=== PATIENT | female | born 1980 | race Caucasian/White ===

== ENCOUNTER 2022-06-03 12:11 | Outpatient (CLI) | payer BC, SELFPAY ==
[2022-06-03 13:21] LABS: Clue Cells >20% Clue Cells Seen (None Seen); Trichomonas No Trichomonas Seen (None Seen); Yeast No Yeast Seen (None Seen)
[2022-06-03 17:45] LABS: Hepatitis B Surface Antigen* Negative (Negative)
[2022-06-03 17:55] LABS: HIV 1/2/P24 Combo Screen* Negative (Negative)
[2022-06-03 18:03] LABS: Hepatitis C Virus Antibody* Negative (Negative)
[2022-06-03 18:42] LABS: Chlamydia DNA Amplified* NOT DETECTED (No Detected); GC DNA Amplified* NOT DETECTED (No Detected)
[2022-06-06 01:39] LABS: Rapid Plasma Reagin (RPR) Non Reactive (Non Reactive)
[2022-06-06 05:44] LABS: HSV 1 Glycoprotein G Ab, IgG 5.91 IV (<=0.89)
[2022-06-06 08:13] LABS: Follicle Stimulating Hormone 15.9 IU/L
[2022-06-07 02:24] LABS: HSV 1 and/or 2 IgM by ELISA 0.33 IV (<=0.89); HSV Type 1/2 Combined Ab, IgG >22.40 IV
== END 2022-06-03 12:12 | disposition home or self-care (01) ==
PROVIDERS: Visit Provider Obstetrics & Gynecology
DX: Z11.3 Encounter for screening for infections with a predominantly sexual mode of transmission (principal); R23.2 Flushing; Z12.4 Encounter for screening for malignant neoplasm of cervix
CPT/HCPCS: 83001; 84443; 86592; 86694; 86695; 86696; 86703; 86803; 87210; 87340; 87491; 87591; 87624; 88175

== ENCOUNTER 2022-07-29 11:37 | Outpatient (CLI) | payer BC, SELFPAY | END 2022-07-29 11:38 | disposition home or self-care (01) | LOC: NFLDREF 11:39 | PROVIDERS: Visit Provider Obstetrics & Gynecology | DX: N89.8 Other specified noninflammatory disorders of vagina (principal); R10.2 Pelvic and perineal pain | CPT/HCPCS: 87086; 87186 ==

== ENCOUNTER 2022-10-03 17:15 | Outpatient (CLI) | payer BC, SELFPAY | END 2022-10-03 17:16 | disposition home or self-care (01) | LOC: AMB 10-04 10:53 | PROVIDERS: Visit Provider Emergency Medicine | DX: Z02.89 Encounter for other administrative examinations (principal) ==

== ENCOUNTER 2022-10-14 08:52 | Outpatient (CLI) | payer BC, SELFPAY | END 2022-10-14 08:53 | disposition home or self-care (01) | LOC: NFLDREF 09:59 | PROVIDERS: Visit Provider Physician Assistant | DX: N39.0 Urinary tract infection, site not specified (principal) | CPT/HCPCS: 87086; 87186 ==

== ENCOUNTER 2022-10-17 14:16 | Outpatient (CLI) | payer BC, SELFPAY | END 2022-10-17 14:17 | disposition home or self-care (01) | PROVIDERS: Visit Provider Internal Medicine | DX: R53.83 Other fatigue (principal); R53.1 Weakness; R05.9 Cough, unspecified | CPT/HCPCS: 80053; 87086 ==

== ENCOUNTER 2023-04-24 15:39 | Outpatient (REF) | payer MEDICAID, SELFPAY ==
[2023-04-24 16:00] LABS: Basophils Absolute Auto 0.07 K/uL (0.00-0.30); Basophils Percent Auto 0.9 % (0.0-3.0); Eosinophils Absolute Auto 0.06 K/uL (0.00-0.50); Eosinophils Percent Auto 0.8 % (0.0-7.0); Hematocrit 31.1 % (33.0-51.0); Hemoglobin* 9.8 gm/dL (12.0-16.0); Immature Granulocytes Abs Auto 0.03 K/uL (0.00-0.30); Immature Granulocytes Pct Auto 0.4 %; Lymphocytes Absolute Auto 2.93 K/uL (0.90-2.90); Mean Corpuscular HGB Conc 32 gm/dL (32-36); Mean Corpuscular Hemoglobin 31 pg (26-34); Mean Corpuscular Volume 98 fL (80-100); Monocytes Percent Auto 6.9 % (0.0-11.0); Neutrophils Absolute Auto 4.28 K/uL (1.7-7.0); Platelet Count* 604 K/uL (140-440); RDW Coefficient of Variation % 19.1 % (11.5-15.5); Red Blood Count 3.17 m/uL (4.00-5.20); White Blood Count* 7.92 K/uL (4.50-11.00)
[2023-04-24 16:01] LABS: Slide Review Reflex No
[2023-04-24 16:13] LABS: Aspartate Amino Transferase* 39 U/L (12-35); Estimated Glomerular Filt Rate 73 ml/min
[2023-04-24 16:16] LABS: C Reactive Protein* 2.8 mg/dL (0.5-1.0)
[2023-04-24 16:59] LABS: Erythrocyte SedimentationRate* 78 mm/hr (2-20)
== END 2023-04-24 15:40 | disposition home or self-care (01) ==
LOC: NPINS 15:39
DX: N15.1 Renal and perinephric abscess (principal)
CPT/HCPCS: 82565; 84450; 85025; 85651; 86140

== ENCOUNTER 2023-05-03 14:00 | Outpatient (RCR) | payer MEDICAID, SELFPAY ==
[2023-04-13 11:32] LABS: Basophils Absolute Auto 0.06 K/uL (0.00-0.30); Basophils Percent Auto 0.8 % (0.0-3.0); Eosinophils Absolute Auto 0.16 K/uL (0.00-0.50); Eosinophils Percent Auto 2.2 % (0.0-7.0); Hematocrit 20.9 % (33.0-51.0); Immature Granulocytes Abs Auto 0.04 K/uL (0.00-0.30); Immature Granulocytes Pct Auto 0.6 %; Lymphocytes Absolute Auto 1.48 K/uL (0.90-2.90); Lymphocytes Percent Auto 20.7 % (20-44); Mean Corpuscular HGB Conc 31 gm/dL (32-36); Mean Corpuscular Hemoglobin 32 pg (26-34); Mean Corpuscular Volume 106 fL (80-100); Monocytes Percent Auto 6.7 % (0.0-11.0); Neutrophils Absolute Auto 4.94 K/uL (1.7-7.0); Platelet Count* 475 K/uL (140-440); RDW Coefficient of Variation % 18.6 % (11.5-15.5); Red Blood Count 1.98 m/uL (4.00-5.20); White Blood Count* 7.16 K/uL (4.50-11.00)
[2023-04-13 11:50] LABS: Hemoglobin* 6.4 gm/dL (12.0-16.0); Slide Review Reflex Yes
[2023-04-13 11:56] LABS: Aspartate Amino Transferase* 48 U/L (12-35); Creatinine* 0.8 mg/dL (0.5-1.5); Estimated Glomerular Filt Rate 95 ml/min
[2023-04-13 11:59] LABS: C Reactive Protein* 7.5 mg/dL (0.5-1.0)
--- NOTE | 2023-04-13 12:32 | ONC.NURNOTE ---
Patient's lab values called and faxed to ID with information regarding her swelling of legs, hands, and face. Patient also reports a change in vision, and peeling of bilateral feet. Office will discuss wtih Dr. Lagos and will call patient with plan. Patient is aware that they will be calling and will call them if she does not hear from them by afternoon. She denies bleeding from anywhere.
[2023-04-13 12:42] LABS: Slide Review Acceptable Review (Acceptable)
[2023-05-01 14:35] LABS: Basophils Absolute Auto 0.05 K/uL (0.00-0.30); Basophils Percent Auto 0.5 % (0.0-3.0); Eosinophils Absolute Auto 0.03 K/uL (0.00-0.50); Eosinophils Percent Auto 0.3 % (0.0-7.0); Immature Granulocytes Abs Auto 0.01 K/uL (0.00-0.30); Immature Granulocytes Pct Auto 0.1 %; Lymphocytes Absolute Auto 3.57 K/uL (0.90-2.90); Mean Corpuscular HGB Conc 31 gm/dL (32-36); Mean Corpuscular Hemoglobin 30 pg (26-34); Mean Corpuscular Volume 96 fL (80-100); Monocytes Percent Auto 4.7 % (0.0-11.0); Neutrophils Absolute Auto 5.79 K/uL (1.7-7.0); Neutrophils Percent Auto 58.4 % (42.0-72.0); Platelet Count* 528 K/uL (140-440); Red Blood Count 3.34 m/uL (4.00-5.20); White Blood Count* 9.92 K/uL (4.50-11.00)
[2023-05-01 14:39] LABS: Slide Review Reflex No
[2023-05-01 15:03] LABS: Aspartate Amino Transferase* 36 U/L (12-35); Creatinine* 0.9 mg/dL (0.5-1.5); Estimated Glomerular Filt Rate 83 ml/min
[2023-05-01 15:07] LABS: C Reactive Protein* 1.6 mg/dL (0.5-1.0)
[2023-05-01 15:17] LABS: Erythrocyte SedimentationRate* 53 mm/hr (2-20)
--- NOTE | 2023-05-02 09:11 | ONC.NURNOTE ---
Labs faxed to Dr. Suarez.
--- NOTE | 2023-05-03 14:51 | ONC.NURNOTE ---
Midline PICC removed without difficulty, intact. Pt observed for 30 min after removal.
== END 2023-10-10 23:59 | disposition home or self-care (01) ==
LOC: CCIC 14:00
PROVIDERS: Visit Provider Clinical Nurse Specialist
DX: D69.6 Thrombocytopenia, unspecified (principal)
CPT/HCPCS: 36415; 36589; 82565; 84450; 85025; 85651; 86140; 99211; A4221

== ENCOUNTER 2023-06-09 11:01 | Outpatient (CLI) | payer MEDICAID, SELFPAY | END 2023-06-09 11:02 | disposition home or self-care (01) | LOC: AMB 06-13 16:10 | PROVIDERS: PCP Family Medicine; Visit Provider Family Medicine | DX: R45.851 Suicidal ideations (principal) | CPT/HCPCS: A0425; A0427 ==

== ENCOUNTER 2023-06-09 11:27 | Emergency (ER) | payer SELFPAY ==
[2023-06-09] VITALS (116 sets, daily range): BP systolic 64–101; BP diastolic 40–76; PULSE 58–95; RESP 7–18; TEMP 36.6; O2SAT 89–100; BMI 23.5
--- NOTE | 2023-06-09 11:54 | ED_ITS ---
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 Propoxyphene Screen Negative (Negative) Acetaminophen (10.0-30.0) ug/mL Ur Barbiturates Screen Negative (Negative) U Tricyclic Antidepress Negative (Negative) Ur Phencyclidine Scrn Negative (Negative) Ur Amphetamines Screen Negative (Negative) U Methamphetamines Scrn Negative (Negative) U Benzodiazepines Scrn POSITIVE A (Negative) Urine Cocaine Screen Negative (Negative) U Marijuana (THC) Screen Negative (Negative) Ur Drug Screen Comment See Note Ethyl Alcohol (0.01-0.03) % SARS-CoV-2 (PCR) Negative SARS-CoV-2 (Negative) Lab Acknowledgement Test Added POC Troponin I (0.01-0.04) ng/ml ECG Data Attestation: I personally reviewed and interpreted this ECG as follows: (EKG is generally low amplitude normal sinus rhythm rate of 71 reviewed by me) Critical Care Time Critical Care Time Critical Care Time: Yes Attestation: The patient required my highest level preparedness to intervene emergently and I personally spent this critical care time directly and personally managing the patient. This critical care time included: Obtaining a history; Examining the patient; Pulse oximetry; Ordering and reviewing of studies; Arranging urgent treatment with development of a management plan; Evaluation of patients response to treatment; Frequent reassessment discussions with other providers. This critical care time was performed to assess and manage the high probability of imminent life-threatening deterioration that could result in multiorgan failure. It was exclusive of separate billable procedures and treating other patients and teaching time. Total Critical Care Time in Minutes: 80 Discharge Plan Discharge Clinical Impression: Alcohol intoxication, Altered mental status, Hypotension Patient Disposition: [facility] Discharge Location: [facility] Condition: Guarded
[2023-06-09] MEDS: 0.9 % SODIUM CHLORIDE 1000 ml 1,000 ML IV ×3 (12:02→15:41)
[2023-06-09 12:21] LABS: Basophils Absolute Auto 0.05 K/uL (0.00-0.30); Basophils Percent Auto 0.7 % (0.0-3.0); Eosinophils Absolute Auto 0.05 K/uL (0.00-0.50); Eosinophils Percent Auto 0.7 % (0.0-7.0); Hematocrit 40.3 % (33.0-51.0); Hemoglobin* 12.7 gm/dL (12.0-16.0); Immature Granulocytes Abs Auto 0.01 K/uL (0.00-0.30); Immature Granulocytes Pct Auto 0.1 %; Mean Corpuscular HGB Conc 32 gm/dL (32-36); Mean Corpuscular Hemoglobin 29 pg (26-34); Mean Corpuscular Volume 91 fL (80-100); Monocytes Percent Auto 5.5 % (0.0-11.0); Platelet Count* 238 K/uL (140-440); Red Blood Count 4.43 m/uL (4.00-5.20); White Blood Count* 6.89 K/uL (4.50-11.00)
[2023-06-09 12:22] LABS: HCO3 VBG 27 mmol/L (21-28); PCO2 VBG 47 mmHG (40-50); PO2 VBG 83.1 mmHG (25-47); pH VBG 7.372 (7.32-7.43)
[2023-06-09 12:23] LABS: Lactate* 2.2 mmol/L (0.5-1.9)
[2023-06-09 12:24] LABS: Slide Review Reflex No
[2023-06-09 12:41] LABS: Albumin* 4.3 g/dL (3.3-5.0); Chloride* 107 mmol/L (96-114)
[2023-06-09 12:42] LABS: Potassium* 3.6 mmol/L (3.6-5.1); Sodium* 143 mmol/L (135-149)
[2023-06-09 12:44] LABS: Est. Creatinine Clearance* 72.72; Estimated Glomerular Filt Rate 73 ml/min
[2023-06-09 12:45] LABS: Alanine Aminotransferase* 12 U/L (4-35); Alkaline Phosphatase* 59 U/L (40-150); Anion Gap 12 mEq/L (7-15); Aspartate Amino Transferase* 29 U/L (12-35); Bilirubin Total* 0.3 mg/dL (0.1-1.5); Blood Urea Nitrogen* 13 mg/dL (5-24); Calcium* 8.7 mg/dL (8.4-10.6); Carbon Dioxide* 24 mmol/L (20-32); Glucose* 85 mg/dL (60-115); Total Protein* 7.6 g/dL (6.0-8.3)
[2023-06-09 12:46] LABS: Magnesium* 2.7 mg/dL (1.5-2.6)
[2023-06-09 12:48] LABS: Acetaminophen* < 10.0 ug/mL (10.0-30.0); C Reactive Protein* < 0.5 mg/dL (0.5-1.0); Salicylate* < 1.0 mg/dL (1.0-10)
[2023-06-09 12:58] LABS: NT Pro B Type NatriureticPept* 52 pg/mL; Troponin I* < 0.01 ng/mL (0.01-0.04)
[2023-06-09 13:19] LABS: Ur HCG Qualitative* Negative (Negative)
--- NOTE | 2023-06-09 13:21 | ED.NURSE ---
notified of low blood pressure. No orders. No new interventions.
[2023-06-09 13:24] LABS: Amphetamine Screen Urine Negative (Negative); Barbiturate Screen Urine Negative (Negative); Benzodiazepines Screen Urine POSITIVE (Negative); Cannabinoid Screen Urine Negative (Negative); Cocaine Screen Urine Negative (Negative); Methadone Screen Urine Negative (Negative); Methamphetamines Screen Urine Negative (Negative); Opiate Screen Urine Negative (Negative); Oxycodone Screen Urine Negative (Negative); Phencyclidine Screen Urine Negative (Negative); Tricyclic Antidepressant Urine Negative (Negative)
[2023-06-09 13:28] LABS: Thyroid Stimulating Hormone* 0.881 uIU/mL (0.270-4.20)
--- NOTE | 2023-06-09 13:30 | ED.NURSE ---
Fingernail Former took call from someone claiming to be [facility] [employer]. Requesting information on patient such as status, ETOH level and requesting an interview with patient. Fingernail Former stated we are not authorized to provide information. Caller became upset stating they would be coming to the hospital with law enforcement.
[2023-06-09 13:31] LABS: Ethanol* 0.28 % (0.01-0.03)
--- NOTE | 2023-06-09 14:00 | ED.NURSE ---
Pt blood pressure low. Minimally responsive to Stimuli GCS 2. MD notified. No new orders. Continue with current plan.
--- NOTE | 2023-06-09 14:28 | ED.NURSE ---
Pharmaceutical Operator contacted poison control. Per poison control, avoid giving benzo reversal as she is on Amitriptyline and that can cause seizures as well as the quick reversal of the Ativan. Pt is negative for amphetamines which makes taking Adderall unlikely. Staff should watch for tachycardia, EKG: QT prolongation and seizures. Peak time for Ativan and Adderall is less than 4 hours from time of ingestion.
--- NOTE | 2023-06-09 14:45 | ED.NURSE ---
Pt to CT scan. Continues to be responsive only to painful stimuli
--- NOTE | 2023-06-09 14:52 | CRLHL7_ITS ---
For Patients: As a result of the Century Cures Act, medical imaging exams and procedure reports are released immediately into your electronic medical record. You may view this report before your referring provider. If you have questions, please contact your health care provider. INDICATION: Altered mental status. Hypotension. TECHNIQUE: CT head without contrast. COMPARISON: March 25, 2023. FINDINGS: CSF spaces: Within normal limits for age. Brain parenchyma and extra-axial spaces: The randall-white differentiation is normal. No sign of mass, hemorrhage, or midline shift. No extra-axial fluid collection. Skull base and calvarium: The visualized paranasal sinuses and mastoid air cells demonstrate no acute or significant findings. The visualized orbits are grossly unremarkable. No skull fractures. IMPRESSION: Unremarkable noncontrast head CT. Please note that all CT scans at this facility use dose modulation, iterative reconstruction, and/or weight-based dosing when appropriate to reduce radiation dose to as low as reasonably achievable. Dictated by Quentin Harris MD @ 06/09/2023 3:50:58 PM (Electronically Signed)
--- NOTE | 2023-06-09 15:50 | CRLHL7_ITS ---
For Patients: As a result of the Cures Act, medical imaging exams and procedure reports are released immediately into your electronic medical record. You may view this report before your referring provider. If you have questions, please contact your health care provider. INDICATION: Hypoxia. TECHNIQUE: Chest, 2 views. COMPARISON: October 17, 2022. FINDINGS: Cardiovascular and mediastinum: Heart size and vasculature are normal in caliber and appearance. Lungs and pleural spaces: Lungs are clear. No sign of infiltrate or mass. No sign of pleural effusion. No pneumothorax. Bones and soft tissues: No significant findings. IMPRESSION: No acute or significant findings. Dictated by Peng Martinez MD @ 06/09/2023 5:11:06 PM (Electronically Signed)
--- NOTE | 2023-06-09 15:55 | ED.NURSE ---
Second IV placed.
--- NOTE | 2023-06-09 16:30 | ED.NURSE ---
MD at bedside. Doing bedside ultrasound.
[2023-06-09 16:47] LABS: SARS PCR* Negative SARS-CoV-2 (Negative)
[2023-06-09 16:58] LABS: Appearance Urine Clear (Clear); Bilirubin Urine Negative (Negative); Blood Urine Negative (Negative); Color Urine Yellow (Yellow); Glucose Urine Negative (Negative); Ketones Urine Negative (Negative); Leukocyte Esterase Urine Negative (Negative); Nitrite Urine Negative (Negative); Protein Urine Negative (Negative); Specific Gravity Urine <= 1.005 (1.000-1.030); Urobilinogen Urine 0.2 (0.2-1.0); pH Urine 6.5 (5.0-8.5)
--- NOTE | 2023-06-09 17:00 | ED.NURSE ---
Pt moving around in bed, eyes closed. Exhaust Tender asked patient where she was and patient responded hospital. Unable to communicate further.
[2023-06-09 17:04] LABS: RBC Urine 0-2 (0-2); Squamous Epithelial Cell Urine Few (None-Few); WBC Urine 0-2 (0-5)
--- NOTE | 2023-06-09 17:23 | ED.NURSE ---
Pt latest blood pressure, 73/49 --- order to start Norepi by Dr. Saleem.
[2023-06-09 17:41] LABS: Potassium* 3.8 mmol/L (3.6-5.1)
[2023-06-09 17:44] LABS: Creatine Kinase* 55 U/L (41-117)
--- NOTE | 2023-06-10 14:21 | ED.NURSE ---
Per Anuj Tristna ed director, chart was accessed and Drs' note (emergency note) was faxed to [facility] Jad Moss. [phone].
== END 2023-06-09 18:23 | disposition short-term general hospital (02) ==
PROVIDERS: Emergency Provider Family Medicine; PCP Family Medicine
DX: F10.129 Alcohol abuse with intoxication, unspecified (principal); R41.82 Altered mental status, unspecified; I95.9 Hypotension, unspecified
CPT/HCPCS: 36415; 51702; 70450; 71045; 80048; 80076; 80143; 80179; 80306; 81001; 81025; 82077; 82550; 82803; 83605; 83735; 83880; 84132; 84443; 84484; 85025; 86140; 87040; 87635; 93005; 96374; 99284; 99291; 99292; J2310; J7030

== ENCOUNTER 2023-06-09 17:54 | Outpatient (CLI) | payer MEDICAID, SELFPAY | END 2023-06-09 17:55 | disposition home or self-care (01) | LOC: AMB 06-22 16:19 | PROVIDERS: PCP Family Medicine; Visit Provider Family Medicine | DX: I95.9 Hypotension, unspecified (principal); F10.929 Alcohol use, unspecified with intoxication, unspecified; R41.82 Altered mental status, unspecified | CPT/HCPCS: A0425; A0434 ==

== ENCOUNTER 2023-07-19 15:17 | Outpatient (CLI) | payer BC, SELFPAY | END 2023-07-19 15:18 | disposition home or self-care (01) | LOC: FRMREF 15:18 | PROVIDERS: PCP Family Medicine; Visit Provider Family Medicine | DX: M31.19 Other thrombotic microangiopathy (principal); F31.77 Bipolar disorder, in partial remission, most recent episode mixed; Z79.899 Other long term (current) drug therapy; Z13.9 Encounter for screening, unspecified; Z13.220 Encounter for screening for lipoid disorders; Z13.228 Encounter for screening for other metabolic disorders; F10.20 Alcohol dependence, uncomplicated | CPT/HCPCS: 80053; 80061; 80074; 80177; 80306; 82607; 82728; 84443; 86376 ==

== ENCOUNTER 2023-08-21 11:55 | Outpatient (CLI) | payer BC, SELFPAY | END 2023-08-21 11:56 | disposition home or self-care (01) | PROVIDERS: PCP Family Medicine; Visit Provider Internal Medicine Addiction Medicine | DX: R50.9 Fever, unspecified (principal); R30.0 Dysuria; M79.10 Myalgia, unspecified site | CPT/HCPCS: 80053; 83690; 84443; 86592; 86703 ==

== ENCOUNTER 2023-11-07 13:28 | Outpatient (CLI) | payer BC, SELFPAY | END 2023-11-07 13:29 | disposition home or self-care (01) | LOC: NFLDREF 11-08 07:54 | PROVIDERS: PCP Family Medicine; Referring Provider Family Medicine; Visit Provider Physician Assistant | DX: N39.0 Urinary tract infection, site not specified (principal) | CPT/HCPCS: 87086; 87186 ==

== ENCOUNTER 2023-11-19 10:08 | Emergency (ER) | payer BC, SELFPAY ==
[2023-11-19 10:15] VITALS: BP 113/68; PULSE 107; RESP 18; TEMP 37; O2SAT 99; BMI 22.1
--- NOTE | 2023-11-19 10:26 | XR_ITS ---
Patient: JAYSON OLEA Facility:?[facility] Patient ID:?[id number] Site Patient ID:?[id number]. Site :?[id number] Study:?XRay-Hip Right -11/19/2023 10:40:56 AM Ordering Physician:?DR. ELLER Final Report: INDICATION: Fall roller-skating TECHNIQUE: AP pelvis and right hip views. FINDINGS: Normal alignment. No fractures are seen. IMPRESSION: Negative . Dictated by Madalyn Smith MD @ 11/19/2023 11:07:22 AM Signed by:?Madalyn Smith MD @11/19/2023 11:07:22 AM (Electronic Signature)
--- OUTSIDE RECORDS SUMMARY | 2023-11-19 10:32 | XMS_ITS | Clinical Summary ---
Author Name Unknown Organization [employer] [facility] Address [place], [place] [address] Care Team Providers Care School Standards Coach Name Role Phone Katerina Trujillo MD Primary Care Provider [phone] Allergies Active Allergy Reactions Criticality Noted Date Comments Adhesive Tape-Silicones Contact Dermatitis 09/2022 Bupropion Hcl Seizures High 07/25/2012 Cefuroxime Throat Swelling/Closing High 11/04/2006 No problems with amoxicillin. Celecoxib Nausea And Vomiting 11/10/2014 Cephalosporins Edema High 11/14/2018 Throat swelling Dust Mites Hives 11/25/2013 Morphine Vomiting Low 05/14/2015 Naloxone Other - Describe In Comment Field 01/08/2019 Blisters in her mouth Naproxen GI Upset 11/04/2006 Intol. Bupropion Seizures 01/03/2007 Medications Medication Sig Dispensed Refills Start Date End Date Status hydrOXYzine HCl (ATARAX) 25 mg tablet Take 25 mg by mouth every 4 hours if needed for Anxiety (sleep). 0 11/28/2017 Active dextroamphetamine-a mphetamine (Adderall XR) 30 mg Extended-Release capsule Take 30 mg by mouth once daily if needed (concentration; school). Not currently taking Active pantoprazole (PROTONIX) 40 mg delayed-release tabletIndications:S epsis due to Gram negative bacteria (HC),Gastroesophage al reflux disease, unspecified whether esophagitis present Take 1 Tablet (40 mg) by mouth two times daily before meals. 60 Tablet 04/05/2023 Active Gavilax 17 gram/dose powder Mix 0.5-1 scoops in liquid then take by mouth once daily if needed for Constipation. 10/06/2022 Active nicotine 21 mg/24 hr (NICODERM; HABITROL) 21 mg/24 hr patch Apply 21 mg on dry, clean, hairless skin once daily if needed for Nicotine Craving. Active nicotine (NICORETTE) 2 mg gum Chew 2 mg every 2 hours if needed for Nicotine Craving. Active sennosides (SENNA) 8.6 mg tabletIndications:T herapeutic opioid induced constipation Take 1-2 Tablets (8.6-17.2 mg) by mouth 2 times daily if needed for Constipation. 30 Tablet 04/20/2023 Active clotrimazole (LOTRIMIN) 1 % creamIndications:Ti siobhan pedis of both feet Apply topically to affected area(s) two times daily. To both feet5 113 g 1 05/03/2023 Active buprenorphine HCL (SUBUTEX) 8 mg tabletIndications:P ain medication agreement Place 1.5 Tablets (12 mg) under the tongue every morning. 30 Tablet 06/11/2023 Active methocarbamoL (ROBAXIN) 500 mg tabletIndications:R enal abscess,Acute left flank pain Take 1-2 Tablets (500-1,000 mg) by mouth every 6 hours if needed for Muscle Spasm PO 1st choice (flank pain). 36 Tablet 2 10/30/2023 Active metroNIDAZOLE (FLAGYL) 500 mg tabletIndications:B acterial vaginosis Take 1 Tablet (500 mg) by mouth two times daily for 7 days. 14 Tablet 11/15/2023 4 Active methocarbamoL (ROBAXIN) 500 mg tabletIndications:R enal abscess,Acute left flank pain Take 1-2 Tablets (500-1,000 mg) by mouth every 6 hours if needed for Muscle Spasm(flank pain). 30 Tablet 04/20/2023 4 Discontinued (Reorder (E-cancel not sent)) amitriptyline (ELAVIL) 25 mg tabletIndications:P TSD (post-traumatic stress disorder) Take 1 Tablet (25 mg) by mouth at bedtime. 30 Tablet 06/12/2023 4 Discontinued (*Med complete/Reg imen complete/Lev el of care change) cyclobenzaprine (FLEXERIL) 10 mg tabletIndications:U pper back pain Take 1 Tablet (10 mg) by mouth 3 times daily if needed for Muscle Spasm. 12 Tablet 09/22/2023 4 Discontinued (*Med complete/Reg imen complete/Lev el of care change) predniSONE (DELTASONE) 10 mg tabletIndications:C ervical radiculopathy Take 2 Tablets (20 mg) by mouth two times daily with meals for 3 days, THEN 1 Tablet (10 mg) three times daily with meals for 3 days, THEN 2 Tablets (20 mg) once daily with a meal for 3 days, THEN 1 Tablet (10 mg) once daily with a meal for 3 days. 30 Tablet 10/30/2023 4 fluconazole (DIFLUCAN) 150 mg tabletIndications:A ntibiotic-induced yeast infection Take 1 Tablet (150 mg) by mouth one time for 1 dose. Take for yeast infection following antibiotic treatment. 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 10/16/2014 Tobacco abuse disorder 06/01/2014 Adenomyosis 10/19/2013 Pelvic pain in female 10/19/2013 ACP (advance care planning) 08/22/2011 Overview: Patient has identified Health Care Agent(s): Yes Add Health Care Agents: No Patient has Advance Care Plan Documents (Health Care Directive, POLST): No, patient is not interested at this time. . Patient has identified Specific Treatment Preferences: No Specific limits to treatment preferences NOT identified: ASSUME FULL TREATMENT. Bre Moore RN .................... 08/22/2011 2:53 PM\ Low grade squamous intraepit helial lesion (LGSIL) on cervical Pap smear 12/15/2009 Overview: 11/2009 LSIL 12/2009 [place]: Squamous cellular changes suspicious but not diagnostic for HPV 07/2010 NIL 06/2011 NIL 07/2012 NIL 10/2013 NIL 01/2017 ASCUS/HPV negative 09/2017 ASCUS/HPV negative; Plan: colposcopy Scapulothoracic Bursitis 02/05/2009 DDD, upper thoracic 02/05/2009 Compression Fracture of T12 02/05/2009 Lumbar Facet Syndrome 02/05/2009 Headache(784.0) 01/12/2009 PTSD (post-traumatic stress disorder) 06/25/2008 Migraine, unspecified, witho ut mention of intractable migraine without mention of status migrainosus Chronic pain due to trauma Other bipolar disorders Resolved Problems Problem Noted Date Diagnosed Date Resolved Date Medical Home 08/22/2011 01/27/2012 Supervision of other normal 12/15/2009 01/25/2013 Unspecified complication of , unspecified as to episode of care 09/10/20072008 Unspecified inflammatory dis ease of female pelvic organs and tissues 06/12/2007 01/12/2009 Overview: ACTINOMYCOSIS Degeneration of thoracic or thoracolumbar intervertebral disc 05/09/2007 02/05/2009 Periapical abscess without sinus 01/12/2009 Encounters Date Type Department Care Team Description 11/15/2023 Telephone [facility] [address] [place] [address] Gayathri Ledezma, PharmD Results (BV Positive) 11/13/2023 4:24 PM CDT - 11/13/2023 8:58 PM CDT Emergency [facility] [address] [place] [address] Joann Ogden NP Hematuria, unspecified type (Primary Dx); Abnormal uterine bleeding Discharge Disposition: Home Self Care 11/13/2023 Travel 11/06/2023 10:10 AM CDT - 11/06/2023 11:59 PM CDT Hospital Encounter [facility] [address] [place] [address] Ren Starks MD Arthropathy of thoracic facet joint; Peripheral polyneuropathy; Scapulothoracic Bursitis; DDD (degenerative disc disease), cervical; Cervical radiculopathy 11/06/2023 Telephone [facility] [address] [place] [address] Ren Starks MD Results 11/06/2023 Travel 10/30/2023 7:40 AM CDT Office Visit [facility] [address] [place] [address] Ren Starks MD Musculoskeletal Problem (Consult neck to thoracic back pain bilateral arm shoulder pain) 10/30/2023 Travel 09/22/2023 2:53 PM GRANULATOR MACHINE OPERATOR - 09/22/2023 4:53 PM GRANULATOR MACHINE OPERATOR Emergency [facility] [address] [place] [address] Gavino Contreras MD Upper back pain (Primary Dx) Discharge Disposition: Home Self Care 09/22/2023 Travel 09/22/2023 Telephone [facility] [address] [place] [address] Ren Starks MD Questions from Last 3 Months Immunizations Name Administration Dates Next Due Influenza, IIV3 (Age >=3 years) 07/19/20 12,04/29/2010,05/28/2008, 7,07/22/2005,06/14/2004 07/19/2013 Influenza, IIV4 10/14/2016 Tdap 10/14/2016,02/07/2011 Family History Medical History Relation Name Comments Allergies Child Alcohol/Drug Father Arthritis Father Cancer Father Heart Disease Father Hx. by pass [place]. Other Father Migraine Psychiatric illness Father Other Maternal Grandmother Migrain e Psychiatric illness Maternal Grandmother Alcohol/Drug Mother Asthma Mother Other Mother Migraine Psychiatric illness Mother Alcohol/Drug Sister 2 Alcohol/Drug Sister 3 Relation Name Status Comments Brother Alive x2 half Child Daughter Alive Father Alive Maternal Grandfather Maternal Grandmother Alive Mother Alive Paternal Grandfather Paternal Grandmother Sister 1 Alive x2 half Sister 2 Sister 3 Son 1 Alive Son 2 Alive Son 3 Alive Son 4 Alive Social History Tobacco Use Types Packs/Day Years Used Date Smoking Tobacco: Every Day Cigarettes 0.5 13 Smokeless Tobacco: Never Tobacco Cessation:Ready to Q uit: Not Asked; Counseling Given: Not Answered Alcohol Use Standard Drinks/Week Comments No 0 (1 standard drink = 0.6 oz pur e alcohol) Social Connections Answer Date Recorded Frequency of Communication with Friends and Fami ly 0 06/09/2023 Financial Resource Strain Answer Date R ecorded Difficulty of Paying Living Expenses 3 06/09/2023 Difficulty of Paying Living Expenses Not on file 06/09/2023 Food Insecurity Answer Date Recorded Worried About Running Out of Food in the Last Ye ar 1 06/09/2023 Transportation Needs Answer Date Record ed Lack of Transportation (Medical) 1 06/09/2023 Housing Stability Answer Date Recorded Unable to Pay for Housing in the Last Year 1 06/09/2023 Sex and Gender Information Value Date Recorded Sex Assigned at Not on file Gender Identity Not on file Sexual Orientation Not on file Obstetrics History Para Term AB IAB SAB Ectopic Multiple Livin g Live Births 7 5 4 4 5 Date Outcome GA Total Labor Labor/2nd/3rd Weight Sex Delivery Anes PTL Nan A1 A5 Name Cl in 11/30 Term 40w 0d 3.63 kg (8 lb) M [facility] Y[facility] [place] 02/01 Term 40w 0d 3.69 kg (8 lb 2 oz) F Vag [place] 12/24 Term 40w 0d 3.52 kg (7 lb 12 oz) M Vag Yolanda ng 7 8 [facility] Delivery Location:[place] 02/11 Para M Vag Yolanda ng [facility] Delivery Location:[place] 06/27 Term 38w 0d 3.4 kg (7 lb 8 oz) M Vag Yolanda ng deter t Delivery Location:[facility] Last Filed Vital Signs Vital Sign Reading Time Taken Comments Blood Pressure 110/74 11/13/2023 7:42 PM CDT Pulse 72 11/13/2023 7:42 PM CDT Temperature 36.9 ??C (98.4 ??F) 11/13/2023 3:58 PM CD T Respiratory Rate 18 11/13/2023 3:58 PM CDT Oxygen Saturation 99% 11/13/2023 7:42 PM CDT Inhaled Oxygen Concentration - - Weight 54.4 kg (120 lb) 11/13/2023 3:58 PM CDT Height 160 cm (5' 3) 11/13/2023 3:58 PM CDT Body Mass Index 21.26 11/13/2023 3:58 PM CDT Plan of Treatment Health Maintenance Due Date Last Done Comments Pneumococcal series for age 6-64 (1 of 2 - PCV) 1988 Depression screening for age 12+ 1994 BMI (ht and wt on same day) for age 18+ 01/16/2019 01/16/2018, 12/27/2017, 12/11/2017, Additional history exists COVID-19 vaccine series (2022- season) 2023 Pap test for age 21-65 06/03/2023 2, 06/03/2022, 02/17/2020, Additional history exists Influenza for age 9-49 04/14/2024 7, 07/19/2012, 04/29/2010, Additional history exists Tetanus booster 10/14/2026 10/14/2016, 02/07/2011 Tdap Completed 10/14/2016, 02/07/2011 Hepatitis C screening for ag e 18-79 Completed 03/26/2023, 10/04/2017, 04/26/2016, Additional history exists HIV for age 15-65 Completed 03/27/2023, , 10/04/2017, Additional history exists Medical Devices Implanted Type Area Aircraft Instrument Engineer Device Identifier Shelf Expiration Date Model / Serial / Lot Stent Uret [id number] Contour - [id number] Implanted:Qty: 1 on 04/24/2023 by Romaine Rivero MD at [facility] Left: Ureter BS Urology 11/28/2025 [id number] / / [id number] Description:NO STICKER SJ 08/05 Explanted Type Area Aircraft Instrument Engineer Device Identifier Shelf Expiration Date Model / Serial / Lot Stent Uret [id number] Tria Soft No Guidewire - [id number] Implanted:Qty: 1 on 04/01/2023 by Romaine Rivero MD at [facility] Explanted:Qty: 1 on 04/24/2023 at [facility] Left: Ureter [facility] 09/22/2025 [id number] / / [id number] Description:NOT CHECKED DF Procedures Procedure Name Priority Date/Time Associated Diagnosis Comments TRICHOMONAS, YOHANNES, AND BACTERIAL VAGINOSIS BY ROSY STAT 11/13/2023 7:47 PM CDT US PELVIS COMPLETE TA AND TV WITH DUPLEX STAT 11/13/2023 7:[address] ABDOMEN PELVIS W STAT 11/13/2023 5 :57 PM CDT URINE CULTURE STAT 11/13/2023 5:04 PM CDT URINALYSIS MICROSCOPIC STAT 11/13/2023 5:04 PM CDT UA W/ SEDIMENT EXAM REFLEXED PER CRITERIA STAT 11/13/2023 5:04 PM CDT BLOOD CULTURE STAT 11/13/2023 4:55 PM CDT CBC WITH AUTO DIFFERENTIAL STAT 11/13/2023 4:49 PM CDT ,SERUM STAT 11/13/2023 4:49 PM CDT LACTATE VENOUS Today 11/13/2023 4:49 PM CDT BLOOD CULTURE STAT 11/13/2023 4:49 PM CDT COMP METABOLIC PANEL STAT 11/13/2023 4:49 PM CDT CBC WITH AUTO DIFFERENTIAL STAT 11/13/2023 4:49 PM CDT MR SPINE CERVICAL WO Routine 11/06/2023 10:52 AM CDT Arthropathy of thoracic facet joint DDD (degenerative disc disease), cervical Cervical radiculopathy MR SPINE THORACIC WO Routine 11/06/2023 10:51 AM CDT Arthropathy of thoracic facet joint Peripheral polyneuropathy Scapulothoracic Bursitis XR CHEST 2 VIEWS PA AND LATERAL STAT 09/22/2023 4:05 PM GRANULATOR MACHINE OPERATOR ,SERUM STAT 09/22/2023 3:28 PM GRANULATOR MACHINE OPERATOR D-DIMER,QUANTITATIVE STAT 09/22/2023 3:28 PM GRANULATOR MACHINE OPERATOR BASIC METABOLIC PANEL STAT 09/22/2023 3:28 PM GRANULATOR MACHINE OPERATOR CBC W PLT NO DIFF STAT 09/22/2023 3:2 8 PM GRANULATOR MACHINE OPERATOR LC HIV-1/O/2, 4TH GENERATION Early AM 03/27/2023 5:59 AM CDT LC HCV ANTIBODY RFX TO QUANT PCR Timed 03/26/2023 10:16 AM CDT HPV THIN PREP Routine 06/03/2022 12:40 PM CDT from Last 3 Months or Most Recently Relevant to Health Maintenance Results * (ABNORMAL) TRICHOMONAS, YOHANNES, AND BACTERIAL VAGINOSIS BY ROSY (11/13/2023 7:47 PM CDT) YOHANNES SPECIES Negative Negative 4 5:28 PM CDT [facility] YOHANNES GLABRATA Negative Negative 11/14/2023 5:28 PM CDT [facility] TRICHOMONAS VVA Negative Negative 4 5:28 PM CDT [facility] BACTERIAL VAGINOSIS Positive(A) Negative 11/14/2023 5:28 PM CDT [facility] Other VAGINAL SWAB / Unknown Non-Blood / Unknown 11/13/2023 7:47 PM CDT 11/13/2023 7:51 PM CDT Joann Lozanokamlaangélica FOOD AND BEVERAGE OPERATIONS MANAGER MICROBIOLOG Y [facility] [address] [place] [address], [place] * US PELVIS COMPLETE TA AND TV WITH DUPLEX (11/13/2023 7:18 PM CDT) Anatomical Region Laterality Modality Pelvis Ultrasound 11/13/2023 7:52 PM CDT Impressions 11/13/2023 7:52 PM CDT Focal 9 millimeter heterogeneous area in the endometrium, possibly blood clot or small polyp. Additional trace fluid in the lower uterine segment endometrial canal. If bleeding persists, consider direct visualization. Incidental 2.3 centimeter right corpus luteal cyst. Otherwise, unremarkable pelvic ultrasound for age. Dictated by Peng Martinez MD @ 11/13/2023 7:52:16 PM (Electronically Signed) Narrative 11/13/2023 7:52 PM CDT For Patients: ??As a result of the Century Cures Act, medical imaging exams and procedure reports are released immediately into your electronic medical record. ??You may view this report before your referring provider. ??If you have questions, please contact your health care provider. INDICATION: Abnormal bleeding. TECHNIQUE: Ultrasound pelvis transabdominal and transvaginal for better assessment or to better visualize the endometrium. Real-time sonographic images with spectral and color Doppler imaging of the ovaries were obtained. COMPARISON: May 09, 2021. FINDINGS: Uterus: 7.9 x 4.3 x 5.9 cm. ??Normal echotexture of the myometrium. ??No masses. ?? Endometrium: Transvaginal imaging was performed to better evaluate the endometrium. ??Endometrial thickness measures 7 mm. Focal 9 millimeter heterogeneous area in the endometrium. Trace free fluid in the lower uterine segment endometrial canal. Right ovary 2.9 x 2.7 x 2.6 centimeters. Left ovary 2.4 x 1.6 x 1.8 centimeters. Incidental 2.3 centimeter right corpus luteal cyst. No ovarian or adnexal masses. Normal arterial and venous blood flow is demonstrated in both ovaries. Cul-de-sac: Trace free fluid. ? Procedure Note Peng Martinez MD - 11/13/2023 For Patients: As a result of the Cures Act, medical imagingexams and procedure reports are released immediately into your electronicmedical record. You may view this report before your referring provider.If you have questions, please contact your health care provider. INDICATION: Abnormal bleeding. TECHNIQUE: Ultrasound pelvis transabdominal and transvaginal for better assessment orto better visualize the endometrium. Real-time sonographic images withspectral and color Doppler imaging of the ovaries were obtained. COMPARISON: May 09, 2021. FINDINGS: Uterus: 7.9 x 4.3 x 5.9 cm. Normal echotexture of the myometrium. [place]. Endometrium: Transvaginal imaging was performed to better evaluate theendometrium. Endometrial thickness measures 7 mm. Focal 9 millimeterheterogeneous area in the endometrium. Trace free fluid in the loweruterine segment endometrial canal. Right ovary 2.9 x 2.7 x 2.6 centimeters. Left ovary 2.4 x 1.6 x 1.8centimeters. Incidental 2.3 centimeter right corpus luteal cyst. Noovarian or adnexal masses. Normal arterial and venous blood flow isdemonstrated in both ovaries. Cul-de-sac: Trace free fluid. IMPRESSION: Focal 9 millimeter heterogeneous area in the endometrium, possibly bloodclot or small polyp. Additional trace fluid in the lower uterine segmentendometrial canal. If bleeding persists, consider direct visualization. Incidental 2.3 centimeter right corpus luteal cyst. Otherwise, unremarkable pelvic ultrasound for age. Dictated by Peng Martinez MD @ 11/13/2023 7:52:16 PM (Electronically Signed) Joann Ogden FOOD AND BEVERAGE OPERATIONS MANAGER US * CT ABDOMEN PELVIS W (11/13/2023 5:57 PM CDT) Anatomical Region Laterality Modality Abdomen, Pelvis, AORTA, LIVER, SPLEEN Computed Tomography 11/13/2023 6:18 PM CDT Narrative 11/13/2023 6:18 PM CDT For Patients: ??As a result of the Cures Act, medical imaging exams and procedure reports are released immediately into your electronic medical record. ??You may view this report before your referring provider. ??If you have questions, please contact your health care provider. Indication: Flank pain, kidney stone suspected ? peylonephritis?, Vaginal bleeding VS Hematuria Technique: CT abdomen and pelvis with intravenous contrast, 100 cc of Omnipaque 300. Please note that all CT scans at this facility use dose modulation, iterative reconstruction, and/or weight-based dosing when appropriate to reduce radiation dose to as low as reasonably achievable. Comparison: CT abdomen and pelvis April 18, 2023; CT abdomen and pelvis December 31, 2021 Findings: A few tiny pulmonary nodules are unchanged 23 since 2021 and almost certainly benign. The gallbladder is contracted. There are couple of tiny hypodensities within the liver which are too small to characterize statistically cysts. The spleen, adrenal glands and pancreas are normal. The kidneys are symmetric in size. There are a couple of sub 3 millimeter right kidney stones and no left kidney stones. There is no hydronephrosis. Stable pelvic phleboliths. Urinary bladder is minimally filled/inadequately evaluated. Small amount of fluid is noted within the endometrium, possibly blood. Dominant right ovarian follicle measures up to 18 millimeters. The appendix is not visualized/correlate for surgical absence. The hollow viscera without obstruction, definite focal bowel wall thickening or adjacent inflammatory stranding. There is no ascites, free air or lymphadenopathy. Bones and soft tissues are stable. Impression: No acute intra-abdominal findings. Please note that all CT scans at this facility use dose modulation, iterative reconstruction, and/or weight-based dosing when appropriate to reduce radiation dose to as low as reasonably achievable. Dictated by Eric Seth MD @ 11/13/2023 6:18:34 PM (Electronically Signed) Procedure Note Eric Seth MD - 11/13/2023 For Patients: As a result of the 21st Century Cures Act, medical imagingexams and procedure reports are released immediately into your electronicmedical record. You may view this report before your referring provider.If you have questions, please contact your health care provider. Indication: Flank pain, kidney stone suspected ? peylonephritis?, Vaginal bleeding VS Hematuria Technique: CT abdomen and pelvis with intravenous contrast, 100 cc of [id number]. Please note that all CT scans at this facility use dose modulation,iterative reconstruction, and/or weight-based dosing when appropriate toreduce radiation dose to as low as reasonably achievable. Comparison: CT abdomen and pelvis April 18, 2023; CT abdomen and pelvis December Findings: A few tiny pulmonary nodules are unchanged 23 since 2021 and almostcertainly benign. The gallbladder is contracted. There are couple of tiny hypodensitieswithin the liver which are too small to characterize statistically cysts.The spleen, adrenal glands and pancreas are normal. The kidneys aresymmetric in size. There are a couple of sub 3 millimeter right kidneystones and no left kidney stones. There is no hydronephrosis. Stable pelvic phleboliths. Urinary bladder is minimallyfilled/inadequately evaluated. Small amount of fluid is noted within theendometrium, possibly blood. Dominant right ovarian follicle measures upto 18 millimeters. The appendix is not visualized/correlate for surgical absence. The hollowviscera without obstruction, definite focal bowel wall thickening oradjacent inflammatory stranding. There is no ascites, free air orlymphadenopathy. Bones and soft tissues are stable. Impression: No acute intra-abdominal findings. Please note that all CT scans at this facility use dose modulation,iterative reconstruction, and/or weight-based dosing when appropriate toreduce radiation dose to as low as reasonably achievable. Dictated by Eric Seth MD @ 11/13/2023 6:18:34 PM (Electronically Signed) Joann Ogden FOOD AND BEVERAGE OPERATIONS MANAGER CT * (ABNORMAL) URINALYSIS MICROSCOPIC (11/13/2023 5:04 PM CDT) RBC 0-2 0-2, None Seen /HPF 11/13/2023 5:25 PM CDT [facility] WBC 3-5 0-2, 3-5, None Seen /HPF 11/13/2023 5:25 PM CDT [facility] BACTERIA Moderate(A) None Seen, Rare, Few Bacteria/ HPF 11/13/2023 5:25 PM CDT [facility] EPITHELIAL CELLS Moderate(A) None Seen, Few Epi/HPF 11/13/2023 5:25 PM CDT [facility] Mucus Present 11/13/2023 5:25 PM [facility] Urine URINE SPECIMEN / Unknown Non-Blood / Unknown 11/13/2023 5:04 PM CDT 11/13/2023 5:13 PM CDT Joann Ogden FOOD AND BEVERAGE OPERATIONS MANAGER URINE [facility] [address] [place] [address] * URINE CULTURE (11/13/2023 5:04 PM CDT) CULTURE No growth (<1,000 CFU/mL) 11/14/2023 3:11 PM CDT [facility] Urine URINE SPECIMEN / Unknown Add On / Unknown 11/13/2023 5:04 PM CDT 11/13/2023 6:41 PM CDT Joann Ogden FOOD AND BEVERAGE OPERATIONS MANAGER MICROBIOLOG Y [facility] [address] [place] [id number], * (ABNORMAL) UA W/ SEDIMENT EXAM REFLEXED PER CRITERIA (11/13/2023 5:04 PM CDT) COLOR Yellow Yellow Color 11/13/2023 5:24 PM CDT [facility] CLARITY Clear Clear Clarity 11/13/2023 5:24 PM CDT [facility] SPECIFIC GRAVITY,URINE 1.025 1.010, 1.015, 1.020, 1.025 11/13/2023 5:24 PM T [facility] PH,URINE 6.0 6.0, 7.0, 8.0, 5.5, 6.5, 7.5, 8.5 11/13/2023 5:24 PM T [facility] UROBILINOGEN, QUALITATIVE Normal Normal EU/dl 11/13/2023 5:24 PM CDT [facility] PROTEIN, URINE Negative Negative mg/dL 11/13/2023 5:24 PM CDT [facility] GLUCOSE, URINE Negative Negative mg/dL 11/13/2023 5:24 PM CDT [facility] KETONES,URINE Negative Negative mg/dL 11/13/2023 5:24 PM CDT [facility] BILIRUBIN,URI NE Negative Negative 11/13/2023 5:24 PM CDT [facility] OCCULT BLOOD,URINE Large(A) Negative 11/13/2023 5:24 PM CDT [facility] NITRITE Negative Negative 11/13/2023 5:24 PM CDT [facility] LEUKOCYTE ESTERASE Small(A) Negative 11/13/2023 5:24 PM CDT [facility] Urine URINE SPECIMEN / Unknown Non-Blood / Unknown 11/13/2023 5:04 PM CDT 11/13/2023 5:13 PM CDT Joann Ogden FOOD AND BEVERAGE OPERATIONS MANAGER URINE Performing Organization Address [facility]/ZIP Co de Phone Number [facility] [address] [place] [address] * BLOOD CULTURE (11/13/2023 4:55 PM CDT) Only the most recent of2 resultswithin the time period is included. CULTURE No Growth. 11/18/2023 5:28 PM CDT [facility] Blood BLOOD SPECIMEN / Unknown IV Start / Unknown 11/13/2023 4:55 PM CDT 11/13/2023 5:10 PM CDT Joann Ogden FOOD AND BEVERAGE OPERATIONS MANAGER MICROBIOLOG Y [facility] [address] [place] [address] * (ABNORMAL) CBC WITH AUTO DIFFERENTIAL (11/13/2023 4:49 PM CDT) WHITE BLOOD COUNT 8.2 4.5 - 11.0 thou/cu mm 11/13/2023 5:04 PM CDT [facility] RED BLOOD COUNT 4.41 4.00 - 5.20 mil/cu mm 11/13/2023 5:04 PM [facility] HEMOGLOBIN 13.4 12.0 - 16.0 g/dL 11/13/2023 5:04 PM [facility] HEMATOCRIT 40.2 33.0 - 51.0 % 11/13/2023 5:04 PM [facility] MCV 91 80 - 100 fL 11/13/2023 5:04 PM [facility] MCH 30.4 26.0 - 34.0 pg 11/13/2023 5:04 PM [facility] MCHC 33.3 32.0 - 36.0 g/dL 11/13/2023 5:04 PM [facility] RDW 15.1 11.5 - 15.5 % 11/13/2023 5:04 PM [facility] PLATELET COUNT 225 140 - 440 thou/cu mm 11/13/2023 5:04 PM [facility] MPV 9.6 6.5 - 11.0 fL 11/13/2023 5:04 PM [facility] % NEUT 53.5 % 11/13/2023 5:04 PM [facility] % LYMPH 37.8 % 11/13/2023 5:04 PM [facility] % MONO 7.1 % 11/13/2023 5:04 PM [facility] % EOS 1.0 % 11/13/2023 5:04 PM [facility] % BASO 0.6 % 11/13/2023 5:04 PM [facility] ABSOLUTE NEUTROPHILS 4.4 1.7 - 7.0 thou/cu mm 11/13/2023 5:04 PM [facility] ABSOLUTE LYMPHOCYTES 3.1(H) 0.9 - 2.9 thou/cu mm 11/13/2023 5:04 PM [facility] ABSOLUTE MONOCYTES 0.6 <0.9 thou/cu mm 11/13/2023 5:04 PM [facility] ABSOLUTE EOSINOPHILS 0.1 <0.5 thou/cu mm 11/13/2023 5:04 PM [facility] ABSOLUTE BASOPHILS 0.1 <0.3 thou/cu mm 11/13/2023 5:04 PM CDT [facility] Blood BLOOD SPECIMEN / Unknown Butterfly / Unknown 11/13/2023 4:49 PM CDT 11/13/2023 5:00 PM CDT Joann Ogden NP HEMATOLOGY Performing Organization Address [facility]/ZIP Co de Phone Number [facility] [address] [place] [address] * LACTATE VENOUS (11/13/2023 4:49 PM CDT) Pathologist [facility] LACTATE,VENOUS 0.8 0.5 - 2.0 mmol/L 11/13/2023 5:27 PM CDT [facility] Blood BLOOD SPECIMEN / Unknown Butterfly / Unknown 11/13/2023 4:49 PM CDT 11/13/2023 5:00 PM CDT Joann Ogden NP CHEMISTRY Performing Organization Address [facility] Co de Phone Number [facility] [address] [place] [phone] * ,SERUM (11/13/2023 4:49 PM CDT) Only the most recent of2 resultswithin the time period is included. Pathologist [facility] ,SERU M Negative Negative 11/13/2023 5:13 PM CDT [facility] Blood BLOOD SPECIMEN / Unknown Butterfly / Unknown 11/13/2023 4:49 PM CDT 11/13/2023 5:03 PM CDT Joann Ogden NP CHEMISTRY Performing Organization Address [facility] Co de Phone Number [facility] [address] [place] [address] * (ABNORMAL) COMP METABOLIC PANEL (11/13/2023 4:49 PM CDT) Pathologist [facility] SODIUM 136 136 - 145 mmol/L 11/13/2023 5:27 PM [facility] POTASSIUM 3.9 3.5 - 5.1 mmol/L 11/13/2023 5:27 PM [facility] CHLORIDE 101 98 - 107 mmol/L 11/13/2023 5:27 PM [facility] CO2,TOTAL 26 22 - 29 mmol/L 11/13/2023 5:27 PM [facility] ANION GAP 9 5 - 18 11/13/2023 5:27 PM [facility] GLUCOSE 87 70 - 99 mg/dL 11/13/2023 5:27 PM [facility] CALCIUM 9.6 8.6 - 10.0 mg/dL 11/13/2023 5:27 PM [facility] BUN 16 6 - 20 mg/dL 11/13/2023 5:27 PM [facility] CREATININE 1.04(H) 0.50 - 0.90 mg/dL 11/13/2023 5:27 PM [facility] BUN/CREAT RATIO 15 10 - 20 5:27 PM [facility] eGFR 69(L) >90 mL/min/1.7 3m2 11/13/2023 5:27 PM [facility] Comment:As of 2021, eG FR is calculated by the CKD-EPI creatinine equation without race adjustment. ??eGFR can be influenced by muscle mass, exercise, and diet. ??The reported eGFR is an estimation only and is only applicable if the renal function is stable. ALBUMIN 4.5 4.0 - 4.9 g/dL 11/13/2023 5:27 PM [facility] PROTEIN,TOTAL 6.8 6.0 - 8.0 g/dL 11/13/2023 5:27 PM [facility] BILIRUBIN,TOTAL 0.3 0.0 - 1.2 mg/dL 11/13/2023 5:27 PM [facility] ALK PHOSPHATASE 55 35 - 104 IU/L 11/13/2023 5:27 PM [facility] ALT (SGPT) 7(L) 10 - 35 IU/L 11/13/2023 5:27 PM CDT [facility] AST (SGOT) 21 10 - 35 IU/L 11/13/2023 5:27 PM CDT [facility] Blood BLOOD SPECIMEN / Unknown Butterfly / Unknown 11/13/2023 4:49 PM CDT 11/13/2023 5:00 PM CDT Joann Ogden FOOD AND BEVERAGE OPERATIONS MANAGER CHEMISTRY [facility] [address] [place] [address] * MR SPINE CERVICAL WO (11/06/2023 10:52 AM CDT) Anatomical Region Laterality Modality Spine, CERVICAL SPINE Magnetic R esonance 11/06/2023 11:2 7 AM CDT Impressions 11/06/2023 11:27 AM CDT 1. Multilevel cervical spondylosis without spinal canal or neural foraminal stenosis. 2. Advanced facet arthropathy and edema within the posterior elements on the left at C4-5 and right at C7-T1, compatible with a stress response. Dictated by Frederick Lee MD @ 11/06/2023 11:27:24 AM (Electronically Signed) Narrative 11/06/2023 11:27 AM CDT For Patients: ??As a result of the Century Cures Act, medical imaging exams and procedure reports are released immediately into your electronic medical record. ??You may view this report before your referring provider. ??If you have questions, please contact your health care provider. INDICATION: Cervical radiculopathy. TECHNIQUE: Multiplanar multisequence MR imaging of the cervical spine without intravenous contrast. COMPARISON: Cervical spine radiographs 09/23/2010. FINDINGS: The cervical lordosis is maintained. Mild rightward cervical curvature. Vertebral heights preserved. No acute fracture or spondylolisthesis. No T1 hypointense lesions. The cervical cord is normal in signal intensity. C2-3: No spinal canal or neural foraminal narrowing. C3-4: Mild left and minimal right facet arthropathy. No spinal canal or neural foraminal narrowing. C4-5: Shallow central disc protrusion. Left uncinate spurring. Advanced left and mild right facet arthropathy. Edema within the left posterior elements. No spinal canal narrowing. Mild left without right neural foraminal narrowing. C5-6: Shallow posterior disc bulge. Bilateral uncinate spurring. [id number] facet arthropathy. No spinal canal or neural foraminal narrowing. C6-7: Mild bilateral facet arthropathy. No spinal canal or neural foraminal narrowing. C7-T1: Advanced right facet arthropathy. Extensive edema within the right posterior elements. No spinal canal narrowing. Mild right without left neural foraminal narrowing. Procedure Note Frederick Lee MD - 11/06/2023 For Patients: As a result of the Cures Act, medical imagingexams and procedure reports are released immediately into your electronicmedical record. You may view this report before your referring provider.If you have questions, please contact your health care provider. INDICATION: Cervical radiculopathy. TECHNIQUE: Multiplanar multisequence MR imaging of the cervical spine withoutintravenous contrast. COMPARISON: Cervical spine radiographs 09/23/2010. FINDINGS: The cervical lordosis is maintained. Mild rightward cervical curvature.Vertebral heights preserved. No acute fracture or spondylolisthesis. No [id number] lesions. The cervical cord is normal in signal intensity. C2-3: No spinal canal or neural foraminal narrowing. C3-4: Mild left and minimal right facet arthropathy. No spinal canal orneural foraminal narrowing. C4-5: Shallow central disc protrusion. Left uncinate spurring. Advancedleft and mild right facet arthropathy. Edema within the left posteriorelements. No spinal canal narrowing. Mild left without right neuralforaminal narrowing. C5-6: Shallow posterior disc bulge. Bilateral uncinate spurring.Acmj-yj-zomirzyq facet arthropathy. No spinal canal or neural foraminalnarrowing. C6-7: Mild bilateral facet arthropathy. No spinal canal or neuralforaminal narrowing. C7-T1: Advanced right facet arthropathy. Extensive edema within the rightposterior elements. No spinal canal narrowing. Mild right without leftneural foraminal narrowing. IMPRESSION: 1. Multilevel cervical spondylosis without spinal canal or neuralforaminal stenosis. 2. Advanced facet arthropathy and edema within the posterior elements onthe left at C4-5 and right at C7-T1, compatible with a stress response. Dictated by Frederick Lee MD @ 11/06/2023 11:27:24 AM (Electronically Signed) Ren Starks MD MR * MR SPINE THORACIC WO (11/06/2023 10:51 AM CDT) Anatomical Region Laterality Modality Spine, THORACIC SPINE Magnetic R esonance 11/06/2023 11:3 9 AM CDT Impressions 11/06/2023 11:39 AM CDT 1. Multilevel thoracic spondylosis without spinal canal or neural foraminal stenosis. 2. Edema within the bilateral posterior elements at T5-6, compatible with a stress response. 3. Moderate multilevel facet arthropathy. Dictated by Frederick Lee MD @ 11/06/2023 11:39:54 AM (Electronically Signed) Narrative 11/06/2023 11:39 AM CDT For Patients: ??As a result of the Cures Act, medical imaging exams and procedure reports are released immediately into your electronic medical record. ??You may view this report before your referring provider. ??If you have questions, please contact your health care provider. INDICATION: Mid back pain. TECHNIQUE: Multiplanar multisequence noncontrast MR images of the thoracic spine. COMPARISON: MRI thoracic spine 06/26/2017. FINDINGS: Slight rightward thoracic curvature. Mildly exaggerated thoracic kyphosis. Mild chronic anterior wedging of multiple mid and lower thoracic vertebral bodies. No acute fracture or spondylolisthesis. No T1 hypointense lesions. T8 vertebral body hemangioma. The thoracic cord is normal in signal intensity. Mild multilevel disc degeneration. Moderate facet arthropathy at T4-5 and T5-6. Edema within the bilateral posterior elements at T5-6, compatible with a stress response. No spinal canal or neural foraminal stenosis. Procedure Note Frederick Lee MD - 11/06/2023 For Patients: As a result of the Cures Act, medical imagingexams and procedure reports are released immediately into your electronicmedical record. You may view this report before your referring provider.If you have questions, please contact your health care provider. INDICATION: Mid back pain. TECHNIQUE: Multiplanar multisequence noncontrast MR images of the thoracic spine. COMPARISON: MRI thoracic spine 06/26/2017. FINDINGS: Slight rightward thoracic curvature. Mildly exaggerated thoracic kyphosis.Mild chronic anterior wedging of multiple mid and lower thoracic vertebralbodies. No acute fracture or spondylolisthesis. No T1 hypointense lesions.T8 vertebral body hemangioma. The thoracic cord is normal in signalintensity. Mild multilevel disc degeneration. Moderate facet arthropathy at T4-5 andT5-6. Edema within the bilateral posterior elements at T5-6, compatiblewith a stress response. No spinal canal or neural foraminal stenosis. IMPRESSION: 1. Multilevel thoracic spondylosis without spinal canal or neuralforaminal stenosis. 2. Edema within the bilateral posterior elements at T5-6, compatible witha stress response. 3. Moderate multilevel facet arthropathy. Dictated by Frederick Lee MD @ 11/06/2023 11:39:54 AM (Electronically Signed) Ren Starks MD MR * XR CHEST 2 VIEWS PA AND LATERAL (09/22/2023 4:05 PM GRANULATOR MACHINE OPERATOR) Anatomical Region Laterality Modality CHEST, THORAX, Lung, HEART Digit al Radiography 09/22/2023 4:13 PM GRANULATOR MACHINE OPERATOR Impressions 09/22/2023 4:13 PM GRANULATOR MACHINE OPERATOR No acute cardiopulmonary findings. Dictated by Elizabet Aceves MD @ 09/22/2023 4:13:01 PM (Electronically Signed) Narrative 09/22/2023 4:13 PM GRANULATOR MACHINE OPERATOR For Patients: ??As a result of the 21st Century Cures Act, medical imaging exams and procedure reports are released immediately into your electronic medical record. ??You may view this report before your referring provider. ??If you have questions, please contact your health care provider. INDICATION: Upper back pain. TECHNIQUE: Chest 2 views. COMPARISON: Chest radiograph 03/27/2023. FINDINGS: No focal consolidation, pleural effusion, or pneumothorax. ??Normal heart size and pulmonary vascularity. ??Degenerative changes of the spine. Procedure Note Elizabet Aceves MD - 09/22/2023 For Patients: As a result of the Century Cures Act, medical imagingexams and procedure reports are released immediately into your electronicmedical record. You may view this report before your referring provider.If you have questions, please contact your health care provider. INDICATION: Upper back pain. TECHNIQUE: Chest 2 views. COMPARISON: Chest radiograph 03/27/2023. FINDINGS: No focal consolidation, pleural effusion, or pneumothorax. Normal heartsize and pulmonary vascularity. Degenerative changes of the spine. IMPRESSION: No acute cardiopulmonary findings. Dictated by Elizabet Aceves MD @ 09/22/2023 4:13:01 PM (Electronically Signed) Gavino Contreras MD GENERAL IMAGING * (ABNORMAL) CBC W PLT NO DIFF (09/22/2023 3:28 PM GRANULATOR MACHINE OPERATOR) WHITE BLOOD COUNT 9.3 4.5 - 11.0 thou/cu mm 09/22/2023 3:39 PM [facility] RED BLOOD COUNT 4.12 4.00 - 5.20 mil/cu mm 09/22/2023 3:39 PM [facility] HEMOGLOBIN 12.5 12.0 - 16.0 g/dL 09/22/2023 3:39 PM [facility] HEMATOCRIT 38.0 33.0 - 51.0 % 09/22/2023 3:39 PM [facility] MCV 92 80 - 100 fL 09/22/2023 3:39 PM [facility] MCH 30.3 26.0 - 34.0 pg 09/22/2023 3:39 PM [facility] MCHC 32.9 32.0 - 36.0 g/dL 09/22/2023 3:39 PM [facility] RDW 15.6(H) 11.5 - 15.5 % 09/22/2023 3:39 PM [facility] PLATELET COUNT 237 140 - 440 thou/cu mm 09/22/2023 3:39 PM [facility] MPV 9.8 6.5 - 11.0 fL 09/22/2023 3:39 PM GRANULATOR MACHINE OPERATOR [facility] Blood BLOOD SPECIMEN / Unknown Venipuncture / Unknown 09/22/2023 3:28 PM GRANULATOR MACHINE OPERATOR 09/22/2023 3:33 PM GRANULATOR MACHINE OPERATOR Gavino Contreras MD HEMATOLOGY Performing Organization Address [facility] de Phone Number [facility] [address] [place] [address] * D-DIMER,QUANTITATIVE (09/22/2023 3:28 PM GRANULATOR MACHINE OPERATOR) Pathologist [facility] D-DIMER,QUANTI TATIVE 0.22 <0.49 FEU mcg/mL FEU mcg/mL 09/22/2023 3:41 PM GRANULATOR MACHINE OPERATOR [facility] Blood BLOOD SPECIMEN / Unknown Venipuncture / Unknown 09/22/2023 3:28 PM GRANULATOR MACHINE OPERATOR 09/22/2023 3:33 PM GRANULATOR MACHINE OPERATOR Narrative [facility] - 09/22/2023 3:41 PM GRANULATOR MACHINE OPERATOR The cut off value for exclusion of Deep Vein Thrombosis and / or Pulmonary Embolism is 0.50 FEU mcg/mL For patients greater than 50 years of age the upper limit is age dependent and was calculated with the formula: ?? (PATIENT AGE x 0.01) FEU mcg/mL = Upper limit of normal range Gavino Contreras MD HEMATOLOGY Performing Organization Address [facility] Co de Phone Number [facility] [address] [place] [address] * (ABNORMAL) BASIC METABOLIC PANEL (09/22/2023 3:28 PM GRANULATOR MACHINE OPERATOR) SODIUM 139 136 - 145 mmol/L 09/22/2023 3:53 PM GRANULATOR MACHINE OPERATOR [facility] POTASSIUM 4.6 3.5 - 5.1 mmol/L 09/22/2023 3:53 PM GRANULATOR MACHINE OPERATOR [facility] CHLORIDE 102 98 - 107 mmol/L 09/22/2023 3:53 PM [facility] CO2,TOTAL 28 22 - 29 mmol/L 09/22/2023 3:53 PM [facility] ANION GAP 9 5 - 18 09/22/2023 3:53 PM [facility] GLUCOSE 86 70 - 99 mg/dL 09/22/2023 3:53 PM [facility] CALCIUM 9.3 8.6 - 10.0 mg/dL 09/22/2023 3:53 PM [facility] BUN 19 6 - 20 mg/dL 09/22/2023 3:53 PM [facility] CREATININE 1.06(H) 0.50 - 0.90 mg/dL 09/22/2023 3:53 PM [facility] BUN/CREAT RATIO 18 10 - 20 3:53 PM [facility] eGFR 68(L) >90 mL/min/1.7 3m2 09/22/2023 3:53 PM [facility] Comment:As of 2021, eG FR is calculated by the CKD-EPI creatinine equation without race adjustment. ??eGFR can be influenced by muscle mass, exercise, and diet. ??The reported eGFR is an estimation only and is only applicable if the renal function is stable. Blood BLOOD SPECIMEN / Unknown Venipuncture / Unknown 09/22/2023 3:28 PM GRANULATOR MACHINE OPERATOR 09/22/2023 3:33 PM GRANULATOR MACHINE OPERATOR Gavino Contreras MD CHEMISTRY [facility] [address] [place] [address] * LC HIV-1/O/2, 4TH GENERATION (03/27/2023 5:59 AM CDT) HIV Scr 4th Gen Non Reactive Non Reactive 03/29/2023 10:06 PM CDT [facility] Comment: HIV Negative HIV-1/HIV-2 antibodies and HIV-1 p24 antigen were NOT detected. There is no laboratory evidence of HIV infection. Blood BLOOD SPECIMEN / Unknown Butterfly / Unknown 03/27/2023 5:59 AM CDT 03/27/2023 6:06 AM CDT Narrative [facility] ([facility]) - 03/29/2023 10:06 PM CDT Performed at: ??[address] ??[id number] Ase Certified Technician: Milo Shanks MD, Phone: ??[phone] Ginna Rizo MD LABORATORY Performing Organization Address [facility] Co de Phone Number [facility] ([facility] [address] [place] [address] * LC HCV ANTIBODY RFX TO QUANT PCR (03/26/2023 10:16 AM CDT) HCV Ab Non Reactive Non Reactive 03/29/2023 10:06 PM CDT [facility] Blood BLOOD SPECIMEN / Unknown Butterfly / Unknown 03/26/2023 10:16 AM CDT 03/26/2023 10:33 AM CDT Narrative [facility] ([facility]) - 03/29/2023 10:06 PM CDT Performed at: ??[address] ??[id number] Ase Certified Technician: Milo Shanks MD, Phone: ??[phone] Ginna Rizo MD LABORATORY Performing Organization Address [facility] Co de Phone Number [facility] ([facility]) [address] [place] [address] * HPV HIGH RISK (06/03/2022 12:40 PM CDT) TYPE 16 Negative Negative 06/07/2022 3:19 PM CDT [facility] TYPE 18 Negative Negative 06/07/2022 3:19 PM CDT [facility] OTHER HIGH RISK TYPES Negative Negative 06/07/2022 3:19 PM CDT [facility] Other (Cervical) 06/03/2022 12:40 PM CDT 06/07/2022 7:17 AM CDT Narrative [facility] - 06/07/2022 3:19 PM CDT HPV types 16, 18, 31, 33, 35, 39, 45, 51, 52, 56, 58, 59, 66 and 68 DNA were undetectable or below the pre-set threshold. Methodology: Santos Alison 4800 HPV Test Katerina Trujillo MD MICROBIOLOGY [facility] [address] [place] [address], from Last 3 Months or Most Recently Relevant to Health Maintenance Advance Directives * Full Code (Latest Code Status on File) Date Activated Date Inactivated Comments 06/09/2023 9:07 PM 06/10/2023 3:19 PM Question Answer Comments Code Status Discussion: Reviewed Preferences * Full Code Date Activated Date Inactivated Comments 04/24/2023 9:35 AM 04/24/2023 3:18 PM Question Answer Comments Code Status Discussion: Reviewed Preferences * Full Code Date Activated Date Inactivated Comments 04/15/2023 7:27 AM 04/20/2023 6:53 PM Question Answer Comments Code Status Discussion: Reviewed Preferences * Full Code Date Activated Date Inactivated Comments 03/26/2023 2:25 PM 04/06/2023 2:14 PM Question Answer Comments Code Status Discussion: Reviewed Preferences * Full Code Date Activated Date Inactivated Comments 03/26/2023 8:08 AM 03/26/2023 2:25 PM Question Answer Comments Code Status Discussion: Unable to Assess Preferences, Provider to review later Care Teams [employer] Standards Coach Relationship Specialty Start Date End Date Katerina Trujillo MD [address] [place] [id number] PCP - General Obstetrics and Gynecology 03/06/20
--- OUTSIDE RECORDS SUMMARY | 2023-11-19 10:32 | XMS_ITS | Clinical Summary ---
Author Name Unknown Organization [facility] Address [address] [place] [address] Care Team Providers Care Pipe Coverer Name Role Phone Cande Ronquillo APRN, CNP Primary Care Provider Source Comments You are receiving this document as you are listed as the primary care provider,follow-up provider, or the patient has been referred to you for consultation.This is in compliance with the Medicare andMedicaid EHR Incentive Program,which states Providers who transition their patient to another setting of careor provider of care or refers their patient to another provider of care shouldprovide summary care record for each transition of care or referral. [facility] Allergies Active Allergy Reactions Criticality Noted Date Comments Bupropion Seizures 11/14/2018 Cefuroxime Edema,generalized High 11/07/2018 Throat swelling Celecoxib 11/20/2018 Cephalosporins Edema,generalized High 11/14/2018 Throat swelling Morphine Nausea And Vomiting 11/14/2018 Naproxen Medium 11/20/2018 Medications Medication Sig Dispensed Refills Start Date End Date Status OLANZapine (ZYPREXA) 5 MG tabletIndications:D epression with anxiety (HRC),Chronic insomnia Take 1 Tablet by mouth every evening. 90 Tablet 1 11/07/2018 Active Additional Information Patient not taking.Reported on 11/30/2018 naloxone (NARCAN) 4 MG/0.1ML nasal sprayIndications:IV DU (intravenous drug user),Substance use disorder Place 1 [place] into one nostril as needed (for suspected overdose). Call 911. Repeat in opposite nostril in 3 min if no or minimal response. 2 Each 11/07/2018 Active OLANZapine (ZYPREXA) 10 MG tabletIndications:D epression with anxiety (HRC),Chronic insomnia Take 1 Tablet by mouth every evening. 90 Tablet 1 11/14/2018 Active Additional Information Patient taking differently:10 mg OralHS, Reported on 11/30/2018 buprenorphine-nalox one (SUBOXONE) 8-[address] 0.5 Tablets under tongue three times a day. Active Magnesium Hydroxide (MILK OF MAGNESIA OR) Take 30 mL by mouth daily as needed. Active polyethylene glycol 3350 (GLYCOLAX) powderIndications:C onstipation Take 17 g by mouth daily. Mix in 4-8 ounces of liquid and drink Indications: Constipation 850 g 3 11/21/2018 Active hydrOXYzine HCl (ATARAX) 25 MG tabletIndications:i nsomnia Take 3 Tablets by mouth at bedtime as needed for Other (insomnia). Indications: insomnia 270 Tablet 1 11/21/2018 Active tiZANidine (ZANAFLEX) 4 MG tablet TAKE 1 TABLET BY MOUTH EVERY SIX HOURS NEEDED MUSCLE SPASM 60 Tablet 01/02/2019 Active ibuprofen (MOTRIN) 800 MG tabletIndications:P elvic and perineal pain Take 1 Tablet by mouth every 8 hours as needed. for pain 30 Tablet 02/22/2019 Active acetaminophen (TYLENOL) 325 MG tabletIndications:P elvic and perineal pain Take 1-2 Tablets by mouth every 6 hours as needed. 100 Tablet 02/22/2019 Active sennosides-docusate sodium (SENOKOT S) 8.6-50 MG per tabletIndications:C onstipation, unspecified constipation type,Substance use disorder TAKE 1 TABLET BY MOUTH DAILY 30 Tablet 07/24/2020 Active Active Problems Problem Noted Date Diagnosed Date Atypical squamous cells of u ndetermined significance on cytologic smear of cervix (ASC-US) 12/13/2018 Overview: [facility] Review: History: 01/2017: ASCUS, HPV- ([facility] records) *Per pt report, hx of multiple abnormal paps and several colpos* 10/2018: NILM, HPV- Plan, per ASCCP guidelines: Repeat co-test in 12 months (10/2019) Palpitations 11/20/2018 Neuropathy, peripheral 11/20/2018 Overview: Previously managed through pain clinic GERD (gastroesophageal reflux disease) 9 Globus sensation 11/09/2018 HSV-1 (herpes simplex virus 1) infection 019 Overview: Serology positive for HSV 1; no known history of genital or oral lesions. Depression with anxiety 11/07/2018 Posttraumatic stress disorder 11/07/2018 IVDU (intravenous drug user) 11/07/2018 Screening for cervical cancer 11/07/2018 History of abnormal cervical Pap smear 9 Chronic insomnia 11/07/2018 Tobacco abuse 11/07/2018 Immunizations Name Administration Dates Next Due Flu Vac (3+ yrs) 07/19/2012, 7,07/22/2005, 004 Influenza IIV4 (Quadrivalent ) 0.5mL (73873) 11/07/2018,10/14/2016 PPSV23 (Pneumovax) 11/07/2018 Tdap 10/14/2016 Family History Medical History Relation Name Comments Coronary Artery Disease Father trip le bypass, uncertain of age Diabetes, Type II Mother Coronary Artery Disease Maternal Grandfather uncertain of first [place]; at 64 Diabetes, Type II Maternal Grandmother Cancer, Breast Negative Family History Cancer, Colon Negative Family History Cancer, Lung Negative Family History Cancer, Melanoma Negative Family History Cancer, Other Negative Family History Cancer, Ovary Negative Family History Cancer, Prostate Negative Family History Cataract Negative Family History Thyroid Disorder Negative Family History Relation Name Status Comments Father Mother Maternal Grandfather Maternal Grandmother Social History Tobacco Use Types Packs/Day Years Used Date Smoking Tobacco: Every Day Cigarettes 0.5 31.3 Started: 08/14/1992 Smokeless Tobacco: Never Alcohol Use Standard Drinks/Week Comments Yes 0 (1 standard drink = 0.6 oz pur e alcohol) currently sober; last use 2017 Sex and Gender Information Value Date Recorded Sex Assigned at Not on file Gender Identity Not on file Sexual Orientation Not on file Last Filed Vital Signs Vital Sign Reading Time Taken Comments Blood Pressure 103/74 11/30/2018 3:00 PM CDT Pulse 101 11/30/2018 3:00 PM CDT Temperature 36.8 ??C (98.2 ??F) 11/30/2018 3:00 PM CD T Respiratory Rate - - Oxygen Saturation - - Inhaled Oxygen Concentration - - Weight 65.8 kg (145 lb) 11/30/2018 3:00 PM CDT Height 161.3 cm (5' 3.5) 11/07/2018 11:30 AM CD T Body Mass Index 25.28 11/07/2018 11:30 AM CDT Plan of Treatment Health Maintenance Due Date Last Done Comments HepB (1) 2001 Cervical Cancer Screening 11/08/2019 11/07/2018 Adult Preventive Visit 11/07/2020 11/07/2018 COVID-19 Vaccine ( season) 2023 Influenza (#1) 2023 11/07/2018, 10/2016, 07/19/2012, Additional history exists DTaP/Tdap/Td (3 - Tdap) 10/14/2026 10/14/2016, 02/07 Zoster/Shingles (1 of 2) 2032 HIV Screening (Preventive Services) Completed 11/07/2018 Hep C Screening (Preventive Services) Completed 11/07/2018 Pneumococcal Aged Out 11/07/2018 No longer eligi ble based on patient's age to complete this topic HPV Vaccine Aged Out No longer eligi ble based on patient's age to complete this topic HepA Aged Out No longer eligi ble based on patient's age to complete this topic Hib Aged Out No longer eligi ble based on patient's age to complete this topic IPV (Polio) Aged Out No longer eligi ble based on patient's age to complete this topic MCV4 Aged Out No longer eligi ble based on patient's age to complete this topic Procedures Procedure Name Priority Date/Time Associated Diagnosis Comments HIV 1/2 AG/AB 4TH GEN Routine 11/07/2018 12:41 PM CDT IVDU (intravenous drug user) Routine screening for STI (sexually transmitted infection) HEPATITIS C ANTIBODY, WITH REFLEX Routine 11/07/2018 12:41 PM CDT IVDU (intravenous drug user) Routine screening for STI (sexually transmitted infection) ANATOMICAL PATH LIQUID BASED Routine 11/07/2018 12:24 PM CDT from Last 3 Months or Most Recently Relevant to Health Maintenance Results * HIV 1/2 Ag/Ab 4th Generation (11/07/2018 12:41 PM CDT) HIV-1 p24 Ag and HIV-1/HIV-2 Ab Nonreactive Nonreactive PN SOFT 11/07/2018 12:4 1 PM CDT 11/07/2018 3:20 PM CDT Narrative PN SOFT - 11/07/2018 4:11 PM CDT Performed at [facility], [address] [place] [id number] CLIA number [id number] Cande Ronquillo APRN, ARIA LAB_1 Performing Organization Address [facility] de Phone Number PN SOFT [address] [place] [address] * Hepatitis C Virus Erin with Reflex (11/07/2018 12:41 PM CDT) Hepatitis C Antibody Nonreactive Nonreactive PN SOFT 11/07/2018 12:4 1 PM CDT 11/07/2018 3:20 PM CDT Narrative PN SOFT - 11/07/2018 4:11 PM CDT Performed at [facility], [address] [place] [id number] CLIA number [id number] Cande Ronquillo APRN, [facility] LAB_1 Performing Organization Address [facility] de Phone Number PN SOFT [address] [place] [address] * Pap Smear (11/07/2018 12:24 PM CDT) 11/07/2018 12:2 4 PM CDT Narrative PN SOFT - 11/20/2018 6:39 PM CDT FINAL GYNECOLOGICAL CYTOLOGY REPORT Pathology #: [id number] ?Date Obtained: 11/07/2018 ? Date Received: 11/08/2018 INTERPRETATION/RESULTS: Negative for Intraepithelial Lesion or Malignancy. SPECIMEN ADEQUACY: Satisfactory for Evaluation. ??No endocervical cells/transformation zone component present. Verified on 11/20/2018 ??by MARILEE HANSEN MD (electronic signature) CLINICAL NOTES: ?Abnormal bleeding: No, LMP: unknown, Menstrual status: None ?Apply, Current form of therapy: None apply LIQUID BASED PAP SMEAR SPECIMEN TYPE: ?ROUTINE CERVICAL PAP TEST PLEASE NOTE: The pap smear is a screening test designed to aid in the detection of cervical cancer and its precursor lesions. It is not a diagnostic procedure and should not be used as the sole means of detecting cervical cancer. Both false-positive and false-negative reports may occur. Performed at [facility], [facility] [place] [address] Cande Ronquillo APRN, CNP LAB_1 PN SOFT [address] [place] [id number] from Last 3 Months or Most Recently Relevant to Health Maintenance Care Teams Pipe Coverer Relationship Specialty Start Date End Date Cande Ronquillo APRN, CNP [address] [place] [address] PCP - General Nurse Practitioner 04/25/19
--- NOTE | 2023-11-19 10:58 | ED.GENADULT ---
HPI - General Adult General Chief complaint: Extremity Pain/Injury, Lower Stated complaint: right leg pain Time Seen by Provider: 11/19/23 10:22 Source: patient Mode of arrival: ambulatory Limitations: no limitations History of Present Illness HPI narrative: 43-year-old female coming in today complaining of leg pain. Pain started yesterday after she was roller skating. Patient states that she fell onto her right side. She was able to get up take off her skates and go home. She was walking without significant difficulty. However, this morning she woke up and the pain was worse. Pain is located in the right buttocks region radiates into the right lateral hip. Nothing seems to make it better. Any movement or touching it makes it worse. She is able to walk but it is rather painful. She denies any other injury. Related Data Home Medications Medication Instructions Recorded Confirmed levetiracetam PO 05/05/22 11/13/23 dextroamphetamine-amphetamine 20 20 mg PO QDAY 09/18/23 11/13/23 mg tablet (Adderall) Previous Rx's Medication Instructions Recorded nicotine 21 mg/24 hr daily 1 patch transdermal Q24H #30 ea 06/27/22 transdermal patch hydroxyzine HCl 25 mg tablet 25 - 50 mg (1 - 2 x 25 mg) PO QHS 09/05/22 PRN anxiety #60 tabs buprenorphine HCl 8 mg sublingual 12 mg (1.5 x 8 mg) sublingual QDAY 09/18/23 tablet #42 tabs Allergies Allergy/AdvReac Type Severity Reaction Status Date / Time bupropion Allergy Severe Seizure Verified 11/13/23 09:20 cefuroxime Allergy Severe Swelling Verified 11/13/23 09:20 of Lip/Tongue/Throat Cephalosporins Allergy Severe throat Verified 11/13/23 09:20 swelling naloxone Allergy Severe blister, Verified 11/13/23 09:20 swelling of mouth naproxen Allergy Intermediate Unknown Verified 11/13/23 09:20 celecoxib Allergy Unknown Unknown Verified 11/13/23 09:20 house dust mite Allergy Unknown Unknown Verified 11/13/23 09:20 morphine AdvReac Mild Verified 11/13/23 09:20 Review of Systems Status of ROS: Reports: 10 or more systems reviewed and unremarkable except as noted in History and below [facility] Medical History Insomnia ?G47.00 - Insomnia, unspecified (ICD-10) Hypomagnesemia ?E83.42 - Hypomagnesemia (ICD-10) Hypokalemia ?E87.6 - Hypokalemia (ICD-10) IVDU (intravenous drug user) ?F19.90 - Other psychoactive substance use, unspecified, uncomplicated (ICD-10) LGSIL (low grade squamous intraepithelial dysplasia) Migraine ?G43.909 - Migraine, unspecified, not intractable, without status migrainosus (ICD-10) Peripheral neuropathy ?G62.9 - Polyneuropathy, unspecified (ICD-10) PTSD (post-traumatic stress disorder) ?F43.10 - Post-traumatic stress disorder, unspecified (ICD-10) Elevated TSH ?R79.89 - Other specified abnormal findings of blood chemistry (ICD-10) GERD (gastroesophageal reflux disease) ?K21.9 - Gastro-esophageal reflux disease without esophagitis (ICD-10) E coli bacteremia ?R78.81 - Bacteremia (ICD-10) ?B96.20 - Unspecified Escherichia coli [E. coli] as the cause of diseases classified elsewhere (ICD-10) DDD (degenerative disc disease), thoracic ?M51.34 - Other intervertebral disc degeneration, thoracic region (ICD-10) Hx of compression fracture of spine ?Z87.81 - Personal history of (healed) traumatic fracture (ICD-10) ASCUS of cervix with negative high risk HPV ?R87.610 - Atypical squamous cells of undetermined significance on cytologic smear of cervix (ASC-US) (ICD-10) Seizure disorder ?G40.909 - Epilepsy, unspecified, not intractable, without status epilepticus (ICD-10) Diarrhea ?R19.7 - Diarrhea, unspecified (ICD-10) History of migraine headaches ?Z86.69 - Personal history of other diseases of the nervous system and sense organs (ICD-10) History of kidney stones ?Z87.442 - Personal history of urinary calculi (ICD-10) Surgical History Hx of esophagogastroduodenoscopy ?Z98.890 - Other specified postprocedural states (ICD-10) S/P hip arthroscopy ?Z98.890 - Other specified postprocedural states (ICD-10) History of colposcopy ?Z98.890 - Other specified postprocedural states (ICD-10) History of appendectomy ?Z90.49 - Acquired absence of other specified parts of digestive tract (ICD-10) Status post endometrial ablation (10/2017) ?Z98.890 - Other specified postprocedural states (ICD-10) History of tubal ligation (11/2016) ?Z98.51 - Tubal ligation status (ICD-10) S/P tonsillectomy and adenoidectomy ?Z90.89 - Acquired absence of other organs (ICD-10) Family History Mother Abuse, drug or alcohol Psychiatric illness Migraines Asthma Father Cancer Abuse, drug or alcohol Arthritis Psychiatric illness Migraines Heart disease Maternal Grandmother Psychiatric illness Migraines Sister Abuse, drug or alcohol Other Diabetes Social History Narrative: , 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 Patient is somewhat disheveled. Alert and oriented. Answers questions appropriately. Thoughts are goal oriented and rational. No tangential or magical thinking noted. Patient speaks in full sentences without needing to catch her breath. HEENT: Normocephalic atraumatic. Pupils are equally round reactive to light. Extraocular muscles are intact. Conjunctivae are moist without any icterus noted. Moist mucous membranes. Cardiovascular: Heart is regular rate and rhythm. Lungs: Clear to auscultation bilaterally. Abdomen: Soft and nontender nondistended with normal bowel sounds. Extremities: Bilateral lower extremities are without edema. Normal DP and PT pulses. There is no bruising noted of the thigh, hip, buttock area. She has no tenderness to palpation over the lumbar spine. She has a heightened pain response. When I touch the skin of her thigh patient jumps in bed and yells. I am able to move her leg at the hip joint but she does resist any movement. Skin: Well perfused without any obvious bruising. Const: Vital Signs, click to edit/add: Vital Signs - 24 hr 11/19/23 10:15 Temperature 98.6 F Pulse Rate [Right Pulse Oximeter] 107 H Respiratory Rate 18 Blood Pressure [Ri ght Upper Arm] 113/68 Pulse Oximetry 99 Oxygen Delivery Me thod Room Air Course Course ED Course: X-ray of the hip was obtained: X-ray unremarkable. IM Toradol given. Vital Signs Vital signs: Initial Vital Signs Temperature 98.6 F 11/19/23 10:15 Temperature Source Temporal Artery Scan 11/19/23 10:15 Pulse Rate 107 H 11/19/23 10:15 Respiratory Rate 18 11/19/23 10:15 Blood Pressure 113/68 11/19/23 10:15 Blood Pressure Mean 83 11/19/23 10:15 Blood Pressure Position Sitting 11/19/23 10:15 Pulse Oximetry 99 11/19/23 10:15 Oxygen Delivery Method Room Air 11/19/23 10:15 Vital Signs Temperature 98.6 F 11/19/23 10:15 Pulse Rate 107 H 11/19/23 10:15 Respiratory Rate 18 11/19/23 10:15 Blood Pressure 113/68 11/19/23 10:15 Pulse Oximetry 99 11/19/23 10:15 Oxygen Delivery Method Room Air 11/19/23 10:15 Temperature 98.6 F 11/19/23 10:15 Pulse Rate 107 H 11/19/23 10:15 Respiratory Rate 18 11/19/23 10:15 Blood Pressure 113/68 11/19/23 10:15 Pulse Oximetry 99 11/19/23 10:15 Oxygen Delivery Method Room Air 11/19/23 10:15 Medical Decision Making Imaging Data Hip x-ray: Attestation: I have reviewed the pertinent imaging results. Radiologist's impression: INDICATION: Fall roller-skating TECHNIQUE: AP pelvis and right hip views. FINDINGS: Normal alignment. No fractures are seen. IMPRESSION: Negative . Discharge Plan Discharge Clinical Impression: Contusion of hip, right Patient Disposition: Home, Self-Care Condition: Stable Additional Instructions: There is no evidence of any fracture or other abnormality noted in your examination today. You have a contusion of the hip which can cause discomfort for several days. Okay to ice or apply heat to the area, whichever feels best. However, do not apply heat or ice directly to the skin. Okay to take Tylenol as needed for discomfort and do gentle stretching. Narcotic pain medications are not indicated for injury without fractures. Prescriptions: No Action nicotine 21 mg/24 hr patch 24 hour 1 patch transdermal Q24H Qty: 30 5RF hydroxyzine HCl 25 mg tablet 25 - 50 mg PO QHS PRN (Reason: anxiety) Qty: 60 0RF levetiracetam PO dextroamphetamine-amphetamine [Adderall] 20 mg tablet 20 mg PO QDAY buprenorphine HCl 8 mg tablet, sublingual 12 mg sublingual QDAY Qty: 42 1RF Rx Instructions: [id number] Follow Up/Referrals: Parul Valentine DO [Primary Care Provider] - Stand Alone Forms: [employer] Info Instructions
== END 2023-11-19 11:40 | disposition home or self-care (01) ==
PROVIDERS: Emergency Provider Family Medicine; PCP Family Medicine
DX: S70.01XA Contusion of right hip, initial encounter (principal); V00.128A Other non-in-line roller-skating accident, initial encounter
CPT/HCPCS: 73502; 99283; 99284

== ENCOUNTER 2023-11-26 21:34 | Emergency (ER) | payer BC, SELFPAY ==
[2023-11-26 21:43] VITALS: BP 125/74; PULSE 89; RESP 16; TEMP 36.4; O2SAT 97; BMI 22.1
--- NOTE | 2023-11-26 22:14 | ED_ITS ---
HPI - General Adult General Time Seen by Provider: 22:14 Date Seen: 11/26/23 Chief complaint: Abdominal Pain Stated complaint: Sore throat, stomach ache, dizziness Time Seen by Provider: 11/26/23 22:14 Source: patient and RN notes reviewed Mode of arrival: ambulatory Limitations: no limitations History of Present Illness HPI narrative: This 43-year-old female is coming in accompanied by her fiance with concern of possible strep. She has had a sore throat, stomach ache, cell dizzy. No nausea vomiting or diarrhea. She is noting heartburn, her fiance was feeling the same. Maybe some mild cough. She has not noted any fevers. She has had sepsis in the past and did require IV antibiotics. Her fiancee has similar symptoms to her. There is a child at home that has tested positive for strep. She is most concerned about strep. No chest discomfort. She has had her appendix out, has had an endometrial ablation. She has had her tonsils out, has not had strep since having had her tonsils out. Did ask patient about any IV drug use, she states she has never injected IV drugs ever. We reviewed that this was in her chart, she is requesting that this be taken out of her history. Related Data Home Medications Medication Instructions Recorded Confirmed levetiracetam PO 05/05/22 11/13/23 dextroamphetamine-amphetamine 20 20 mg PO QDAY 09/18/23 11/13/23 mg tablet (Adderall) Previous Rx's Medication Instructions Recorded nicotine 21 mg/24 hr daily 1 patch transdermal Q24H #30 ea 06/27/22 transdermal patch hydroxyzine HCl 25 mg tablet 25 - 50 mg (1 - 2 x 25 mg) PO QHS 09/05/22 PRN anxiety #60 tabs buprenorphine HCl 8 mg sublingual 12 mg (1.5 x 8 mg) sublingual QDAY 09/18/23 tablet #42 tabs Allergies Allergy/AdvReac Type Severity Reaction Status Date / Time bupropion Allergy Severe Seizure Verified 11/13/23 09:20 cefuroxime Allergy Severe Swelling Verified 11/13/23 09:20 of Lip/Tongue/Throat Cephalosporins Allergy Severe throat Verified 11/13/23 09:20 swelling naloxone Allergy Severe blister, Verified 11/13/23 09:20 swelling of mouth naproxen Allergy Intermediate Unknown Verified 11/13/23 09:20 celecoxib Allergy Unknown Unknown Verified 11/13/23 09:20 house dust mite Allergy Unknown Unknown Verified 11/13/23 09:20 morphine AdvReac Mild Verified 11/13/23 09:20 Review of Systems Status of ROS: Reports: 6 or more systems reviewed and unremarkable except as noted in History and below [facility] Medical History (Updated 11/26/23 @ 23:17 by Augusta James MD) Insomnia ?G47.00 - Insomnia, unspecified (ICD-10) Hypomagnesemia ?E83.42 - Hypomagnesemia (ICD-10) Hypokalemia ?E87.6 - Hypokalemia (ICD-10) LGSIL (low grade squamous intraepithelial dysplasia) Migraine ?G43.909 - Migraine, unspecified, not intractable, without status migrainosus (ICD-10) Peripheral neuropathy ?G62.9 - Polyneuropathy, unspecified (ICD-10) PTSD (post-traumatic stress disorder) ?F43.10 - Post-traumatic stress disorder, unspecified (ICD-10) Elevated TSH ?R79.89 - Other specified abnormal findings of blood chemistry (ICD-10) GERD (gastroesophageal reflux disease) ?K21.9 - Gastro-esophageal reflux disease without esophagitis (ICD-10) E coli bacteremia ?R78.81 - Bacteremia (ICD-10) ?B96.20 - Unspecified Escherichia coli [E. coli] as the cause of diseases classified elsewhere (ICD-10) DDD (degenerative disc disease), thoracic ?M51.34 - Other intervertebral disc degeneration, thoracic region (ICD-10) Hx of compression fracture of spine ?Z87.81 - Personal history of (healed) traumatic fracture (ICD-10) ASCUS of cervix with negative high risk HPV ?R87.610 - Atypical squamous cells of undetermined significance on cytologic smear of cervix (ASC-US) (ICD-10) Seizure disorder ?G40.909 - Epilepsy, unspecified, not intractable, without status epilepticus (ICD-10) Diarrhea ?R19.7 - Diarrhea, unspecified (ICD-10) History of migraine headaches ?Z86.69 - Personal history of other diseases of the nervous system and sense organs (ICD-10) History of kidney stones ?Z87.442 - Personal history of urinary calculi (ICD-10) Surgical History Hx of esophagogastroduodenoscopy ?Z98.890 - Other specified postprocedural states (ICD-10) S/P hip arthroscopy ?Z98.890 - Other specified postprocedural states (ICD-10) History of colposcopy ?Z98.890 - Other specified postprocedural states (ICD-10) History of appendectomy ?Z90.49 - Acquired absence of other specified parts of digestive tract (ICD- 10) Status post endometrial ablation (10/2017) ?Z98.890 - Other specified postprocedural states (ICD-10) History of tubal ligation (11/2016) ?Z98.51 - Tubal ligation status (ICD-10) S/P tonsillectomy and adenoidectomy ?Z90.89 - Acquired absence of other organs (ICD-10) Family History Mother Abuse, drug or alcohol Psychiatric illness Migraines Asthma Father Cancer Abuse, drug or alcohol Arthritis Psychiatric illness Migraines Heart disease Maternal Grandmother Psychiatric illness Migraines Sister Abuse, drug or alcohol Other Diabetes Social History Narrative: , 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, 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 pack /day, 25 pack years, (currently sober, previously 1.75L x 3 days) What is your current living situation?: I presently have a place to live Smoking Status: Current every day smoker Non-prescribed substance use: denies use Little interest or pleasure in doing things: more than half the days Feeling down, depressed, or hopeless: several days service: No Exam Const: Vital Signs, click to edit/add: Vital Signs - 24 hr 11/26/23 21:43 Temperature 97.5 F L Pulse Rate [Left P ulse Oximeter] 89 Respiratory Rate 16 Blood Pressure [Ri ght Upper Arm] 125/74 Pulse Oximetry 97 Oxygen Delivery Me thod Room Air This 43-year-old female is alert, interactive, no apparent distress. Pupils equal round reactive to light, sclera clear, conjugate gaze. TMs canals normal. Oropharynx with dentition moderate repair, scarring from prior tonsillectomy, no exudates or erythema. Normal posterior pharynx, good oral airway. Neck is supple, no adenopathy. Lungs are clear, good air entry, no wheezing or crackles. CV regular rate and rhythm, no murmur, normal S1-S2, no S3-S4. Abdomen is soft, flat, nondistended, no organomegaly, no rebound or guarding, no masses. Documenting provider has reviewed patient's vital signs: yes Course Course ED Course: Patient had strep testing done. We discussed doing some basic lab work which she would like to proceed with. She is currently hemodynamically stable. Do wonder if both her and her fiance have early viral infectious illness. Reevaluation(s) Time of Reevaluation #1: 23:28 Reevaluation #1: Reviewed negative testing. Reviewed likelihood that this is early viral syndrome as they both have very similar symptoms. Discharge to home for further outpatient observation, recheck or retest if ongoing symptoms. Vital Signs Vital signs: Initial Vital Signs Temperature 97.5 F L 11/26/23 21:43 Temperature Source Temporal Artery Scan 11/26/23 21:43 Pulse Rate 89 11/26/23 21:43 Pulse Rhythm Regular 11/26/23 21:43 Respiratory Rate 16 11/26/23 21:43 Blood Pressure 125/74 11/26/23 21:43 Blood Pressure Mean 91 11/26/23 21:43 Blood Pressure Position Sitting 11/26/23 21:43 Pulse Oximetry 97 11/26/23 21:43 Oxygen Delivery Method Room Air 11/26/23 21:43 Vital Signs Temperature 97.5 F L 11/26/23 21:43 Pulse Rate 89 11/26/23 21:43 Respiratory Rate 16 11/26/23 21:43 Blood Pressure 125/74 11/26/23 21:43 Pulse Oximetry 97 11/26/23 21:43 Oxygen Delivery Method Room Air 11/26/23 21:43 Temperature 97.5 F L 11/26/23 21:43 Pulse Rate 89 11/26/23 21:43 Respiratory Rate 16 11/26/23 21:43 Blood Pressure 125/74 11/26/23 21:43 Pulse Oximetry 97 11/26/23 21:43 Oxygen Delivery Method Room Air 11/26/23 21:43 Medical Decision Making Lab Data Lab results reviewed: Yes I reviewed the patient's lab results Labs: Lab Results 11/26/23 11/26/23 Range/Units 21:45 22:30 WBC 9.17 (4.50-11.00) K/uL RBC 4.14 (4.00-5.20) m/uL Hgb 12.7 (12.0-16.0) gm/dL Hct 37.8 (33.0-51.0) % MCV 91 (80-100) fL MCH 31 (26-34) pg MCHC 34 (32-36) gm/dL RDW Coeff of Lily 14.8 (11.5-15.5) % Plt Count 251 (140-440) K/uL Neut % (Auto) 57.9 (42.0-72.0) % Lymph % (Auto) 33.4 (20-44) % [place] % (Auto) 7.3 (0.0-11.0) % Eos % (Auto) 1.0 (0.0-7.0) % Baso % (Auto) 0.3 (0.0-3.0) % Neut # (Auto) 5.31 (1.7-7.0) K/uL Lymph # (Auto) 3.06 H (0.90-2.90) K/uL [place] # (Auto) 0.70 (0.00-0.90) K/UL Eos # (Auto) 0.09 (0.00-0.50) K/uL Baso # (Auto) 0.03 (0.00-0.30) K/uL Abs Immat Gran (auto) 0.01 (0.00-0.30) K/uL Imm/Tot Granulo (auto) 0.1 % Sodium 134 L (135-149) mmol/L Potassium 3.5 L (3.6-5.1) mmol/L Chloride 103 (96-114) mmol/L Carbon Dioxide 30 (20-32) mmol/L Anion Gap 1 L (7-15) mEq/L BUN 17 (5-24) mg/dL Creatinine 1.0 (0.5-1.5) mg/dL Estimated Creat Clear 61.24 Estimated GFR 73 ml/min Glucose 110 (60-115) mg/dL Lactate 1.4 (0.5-1.9) mmol/L Calcium 9.1 (8.4-10.6) mg/dL Total Bilirubin 0.5 (0.1-1.5) mg/dL AST 30 (12-35) U/L ALT 25 (4-35) U/L Alkaline Phosphatase 56 (40-150) U/L C-Reactive Protein < 0.5 L (0.5-1.0) mg/dL Total Protein 6.8 (6.0-8.3) g/dL Albumin 4.2 (3.3-5.0) g/dL Group A Strep DNA NOT DETECTED (Not Detectd) Discharge Plan Discharge Clinical Impression: Acute viral syndrome Patient Disposition: Home, Self-Care Condition: Stable Instructions: Viral Syndrome (ED) Additional Instructions: Continue to monitor symptoms. Drink plenty of fluids. Can use Tylenol and ibuprofen or other pckk-ynh-zoemcih medicines as needed for symptom control. If you are not improving over the next few days, develops new or worsening symptoms that you are concerned about, please seek re-evaluation. Prescriptions: No Action nicotine 21 mg/24 hr patch 24 hour 1 patch transdermal Q24H Qty: 30 5RF hydroxyzine HCl 25 mg tablet 25 - 50 mg PO QHS PRN (Reason: anxiety) Qty: 60 0RF levetiracetam PO dextroamphetamine-amphetamine [Adderall] 20 mg tablet 20 mg PO QDAY buprenorphine HCl 8 mg tablet, sublingual 12 mg sublingual QDAY Qty: 42 1RF Rx Instructions: [id number] Follow Up/Referrals: Parul Valentine DO [Primary Care Provider] - Stand Alone Forms: [facility] Info Instructions
[2023-11-26 22:32] LABS: Strep A DNA Probe* NOT DETECTED (Not Detectd)
[2023-11-26 22:37] LABS: Lactate* 1.4 mmol/L (0.5-1.9)
[2023-11-26 22:41] LABS: Basophils Absolute Auto 0.03 K/uL (0.00-0.30); Basophils Percent Auto 0.3 % (0.0-3.0); Eosinophils Absolute Auto 0.09 K/uL (0.00-0.50); Hematocrit 37.8 % (33.0-51.0); Hemoglobin* 12.7 gm/dL (12.0-16.0); Immature Granulocytes Abs Auto 0.01 K/uL (0.00-0.30); Immature Granulocytes Pct Auto 0.1 %; Lymphocytes Absolute Auto 3.06 K/uL (0.90-2.90); Lymphocytes Percent Auto 33.4 % (20-44); Mean Corpuscular HGB Conc 34 gm/dL (32-36); Mean Corpuscular Hemoglobin 31 pg (26-34); Mean Corpuscular Volume 91 fL (80-100); Monocytes Percent Auto 7.3 % (0.0-11.0); Neutrophils Absolute Auto 5.31 K/uL (1.7-7.0); Neutrophils Percent Auto 57.9 % (42.0-72.0); Platelet Count* 251 K/uL (140-440); RDW Coefficient of Variation % 14.8 % (11.5-15.5); Red Blood Count 4.14 m/uL (4.00-5.20); White Blood Count* 9.17 K/uL (4.50-11.00)
[2023-11-26 22:42] LABS: Slide Review Reflex No
[2023-11-26 23:00] LABS: Albumin* 4.2 g/dL (3.3-5.0); Chloride* 103 mmol/L (96-114)
[2023-11-26 23:01] LABS: Potassium* 3.5 mmol/L (3.6-5.1); Sodium* 134 mmol/L (135-149)
[2023-11-26 23:03] LABS: Est. Creatinine Clearance* 61.24; Estimated Glomerular Filt Rate 73 ml/min
[2023-11-26 23:04] LABS: Alanine Aminotransferase* 25 U/L (4-35); Alkaline Phosphatase* 56 U/L (40-150); Anion Gap 1 mEq/L (7-15); Aspartate Amino Transferase* 30 U/L (12-35); Bilirubin Total* 0.5 mg/dL (0.1-1.5); Blood Urea Nitrogen* 17 mg/dL (5-24); Carbon Dioxide* 30 mmol/L (20-32); Glucose* 110 mg/dL (60-115); Total Protein* 6.8 g/dL (6.0-8.3)
[2023-11-26 23:05] LABS: Calcium* 9.1 mg/dL (8.4-10.6)
[2023-11-26 23:07] LABS: C Reactive Protein* < 0.5 mg/dL (0.5-1.0)
== END 2023-11-26 23:39 | disposition home or self-care (01) ==
PROVIDERS: Emergency Provider Family Medicine; PCP Family Medicine
DX: B34.9 Viral infection, unspecified (principal)
CPT/HCPCS: 36415; 80053; 83605; 85025; 86140; 87651; 99283

== ENCOUNTER 2024-01-30 13:33 | Outpatient (CLI) | payer BC, SELFPAY ==
--- OUTSIDE RECORDS SUMMARY | 2024-01-30 13:35 | XMS_ITS | Clinical Summary ---
Author Organization [facility] Address [address] [place] [address] Care Team Providers Care Mid Teacher Name Role Phone Cande Ronquillo APRN, CNP [...] for each transition of care or referral. [facility] Allergies Active Allergy Reactions Criticality Noted Date [...] (intravenous drug user),Substance use disorder Place 1 [place] into one nostril as needed (for suspected [...] cytologic smear of cervix (ASC-US) 12/13/2018 Overview: [facility] Review: History: 01/2017: ASCUS, HPV- ([facility] records) [...] 7,07/22/2005, 004 Influenza IIV4 (Quadrivalent ) 0.5mL (92006) 11/07/2018,10/14/2016 PPSV23 (Pneumovax) 11/07/2018 Tdap 10/14/2016 Family History Medical History Relation Name Comments Coronary Artery Disease Father trip le bypass, uncertain of age Diabetes, Type II Mother Coronary Artery Disease Maternal Grandfather uncertain of first CA; at 64 Diabetes, Type II Maternal Grandmother [...] Date Smoking Tobacco: Every Day Cigarettes 0.5 31.5 Started: 08/14/1992 Smokeless Tobacco: Never Alcohol Use [...] 11/07/2018 COVID-19 Vaccine ( season) 2023 Influenza (Season Ended) 2024 019, 10/14/2016, 07/19/2012, Additional history exists DTaP/Tdap/Td (3 - [...] - 11/07/2018 4:11 PM CDT Performed at [facility], [address] [place], [place] [id number] CLIA number [id number] Cande Ronquillo APRN, ARIA LAB_1 Performing Organization Address [facility] de Phone Number PN SOFT [address] [place] [address] * Hepatitis C Virus Erin with Reflex (11/07/2018 12:41 PM CDT) Hepatitis C Antibody Nonreactive Nonreactive PN SOFT 11/07/2018 12:4 1 PM CDT 11/07/2018 3:20 PM CDT Narrative PN SOFT - 11/07/2018 4:11 PM CDT Performed at [facility], [address] [place] [id number] CLIA number [id number] Cande Ronquillo APRN, [employer] LAB_1 Performing Organization Address [facility] de Phone Number PN SOFT [address] [place] [id number] * Pap Smear (11/07/2018 12:24 PM CDT) 11/07/2018 12:2 4 PM CDT Narrative PN SOFT - 11/20/2018 6:39 PM CDT FINAL GYNECOLOGICAL CYTOLOGY REPORT Pathology #: [id number] ?Date Obtained: 11/07/2018 ? Date Received: 11/08/2018 [...] and false-negative reports may occur. Performed at [facility], [facility] [place] [address] Cande Ronquillo APRN, CNP LAB_1 PN SOFT [address] [place] [id number] from Last 3 Months or Most Recently Relevant to Health Maintenance Care Teams Mid Teacher Relationship Specialty Start Date End Date Cande Ronquillo APRN, CNP [address] [place] [address] PCP - General Nurse Practitioner 04/25/19
--- OUTSIDE RECORDS SUMMARY | 2024-01-30 13:35 | XMS_ITS | Clinical Summary ---
Author Organization [facility] Address [place], [place] [address] Care Team Providers Care Reproductive Healthcare Assistant Name Role Phone Katerina Trujillo MD Primary Care Provider [phone] Allergies Active Allergy Reactions Criticality Noted Date Comments Adhesive Tape-Silicones Contact Dermatitis 09/2022 Bupropion Hcl Seizures High 07/25/2012 Cefuroxime Throat Swelling/Closing High 11/04/2006 No problems with amoxicillin. Celecoxib Nausea And Vomiting 11/10/2014 Cephalosporins Edema High 11/14/2018 Throat swelling Dust Mites Hives 11/25/2013 House Dust Mite Hives 11/25/2013 Morphine Vomiting Low 05/14/2015 Naloxone Other - Describe In Comment Field 01/08/2019 Blisters in her mouth Naproxen GI Upset 11/04/2006 Intol. Bupropion Seizures 01/03/2007 Medications Medication Sig Dispensed Refills Start Date End Date Status hydrOXYzine HCl (ATARAX) 25 mg tablet Take 25 mg by mouth every 4 hours if needed for Anxiety (sleep). 0 11/28/2017 Active dextroamphetamine- amphetamine (Adderall XR) 30 mg Extended-Release capsule Take 30 mg by mouth once daily if needed (concentration; school). Not currently taking Active pantoprazole (PROTONIX) 40 mg delayed-release tabletIndications: Sepsis due to Gram negative bacteria (HC),Gastroesophag eal reflux disease, unspecified whether esophagitis present Take [...] Nicotine Craving. Active sennosides (SENNA) 8.6 mg tabletIndications: Therapeutic opioid induced constipation Take 1-2 Tablets (8.6-17.2 mg) by mouth 2 times daily if needed for Constipation. 30 Tablet 04/20/2023 Active clotrimazole (LOTRIMIN) 1 % creamIndications:T inea pedis of both feet Apply topically to affected area(s) two times daily. To both feet5 113 g 1 05/03/2023 Active buprenorphine HCL (SUBUTEX) 8 mg tabletIndications: Pain medication agreement Place 1.5 Tablets (12 mg) under the tongue every morning. 30 Tablet 06/11/2023 Active predniSONE (DELTASONE) 10 mg tabletIndications: Lumbar radiculopathy,DDD (degenerative disc disease), lumbar Take 2 Tablets (20 mg) by mouth two times daily with meals for 3 days, THEN 1 Tablet (10 mg) three times daily with meals for 3 days, THEN 2 Tablets (20 mg) once daily with a meal for 3 days, THEN 1 Tablet (10 mg) once daily with a meal for 3 days. 30 Tablet 01/24/2024 02/05/2024 Active methocarbamoL (ROBAXIN) 500 mg tabletIndications: DDD (degenerative disc disease), lumbar Take 1-2 Tablets (500-1,000 mg) by mouth every 6 hours if needed for Muscle Spasm PO 1st choice (flank pain). 36 Tablet 2 01/24/2024 Active methocarbamoL (ROBAXIN) 500 mg tabletIndications: Renal abscess,Acute left flank pain Take 1-2 Tablets (500-1,000 mg) by mouth every 6 hours if needed for Muscle Spasm PO 1st choice (flank pain). 36 Tablet 2 10/30/2023 01/24/2024 Discontinue d(Reorder (E-cancel not sent)) Active Problems Problem Noted Date Diagnosed Date [...] Pap smear 12/15/2009 Overview: 11/2009 LSIL 12/2009 [place]: Squamous cellular changes suspicious but not diagnostic [...] Encounters Date Type Department Care Team Description 01/29/2024 Telephone [facility] [address] [place] [address] Ren Starks MD Questions 01/29/2024 Telephone [facility] [address] [place] [address] Ren Starks MD Questions 01/25/2024 11:15 AM CDT Ancillary Procedure [facility] [address] [place] [address] 01/24/2024 1:20 PM CDT Office Visit [facility] [address] [place] [address] Ren Starks MD Musculoskeletal Problem (follow up back pain) 01/24/2024 Travel 11/15/2023 Telephone [facility] [address] [place] [address] Gayathri Ledezma PharmD Results (BV Positive) 11/13/2023 4:24 PM CDT - 11/13/2023 8:58 PM CDT Emergency [facility] [address] [place] [address] Joann Ogden NP Hematuria, unspecified type (Primary Dx); Abnormal uterine bleeding Discharge Disposition: Home Self Care 11/13/2023 Travel 11/06/2023 10:10 AM CDT - 11/06/2023 11:59 PM CDT Hospital Encounter [facility] [address] [place] [address] Ren Starks MD Arthropathy of thoracic facet joint; Peripheral polyneuropathy; Scapulothoracic Bursitis; DDD (degenerative disc disease), cervical; Cervical radiculopathy 11/06/2023 Telephone [facility] [address] [place] [address] Ren Starks MD Results 11/06/2023 Travel 10/30/2023 7:40 AM CDT Office Visit [facility] [address] [facility] [address] Ren Starks MD Musculoskeletal Problem (Consult neck to thoracic back pain bilateral arm shoulder pain) 10/30/2023 Travel from Last 3 Months Immunizations Name Administration [...] Tobacco: Never Tobacco Cessation:Ready to Q uit: No; Counseling Given: No Alcohol Use Standard Drinks/Week Comments No 0 [...] Outcome GA Total Labor Labor/2nd/3rd Weight Sex Type Anes PTL Nan A1 A5 Name Clin 002 Term 40w 0d 3.63 kg (8 lb) M Vag Livin g Delivery Location:[place] 003 Term 40w 0d 3.69 kg (8 lb 2 oz) F Vag Livin g Delivery Location:[place] 005 Term 40w 0d 3.52 kg (7 lb 12 oz) M Vag Livin g 7 8 ehresm yecenia Delivery Location:[facility] 008 Para M Vag Livin g ehresm yecenia Delivery Location:[place] 010 Term 38w 0d 3.4 kg (7 lb 8 oz) M Vag Livin g detert Delivery Location:[facility] Last Filed Vital Signs Vital Sign Reading Time Taken Comments Blood Pressure 95/64 01/24/2024 1:24 PM CDT Pulse 80 01/24/2024 1:24 PM CDT Temperature 36.8 ??C (98.2 ??F) 01/24/2024 1:24 PM CD T Respiratory Rate 18 11/13/2023 3:58 PM CDT Oxygen Saturation 98% 01/24/2024 1:24 PM CDT Inhaled Oxygen Concentration - - Weight 57.7 kg (127 lb 3.2 oz) 01/24/2024 1:24 P M CDT Height 160 cm (5' 3) 11/13/2023 3:58 PM CDT Body Mass Index 22.53 11/13/2023 3:58 PM CDT Plan of Treatment Upcoming Encounters Date Type Department Care Team (Late st Contact Info) Description 01/30/2024 2:00 PM CDT Office Visit [facility] [address] [place] [address] Ren Starks MD [address] [place] [address] Arrived Health Maintenance Due Date Last Done Comments Pneumococcal series for age 6-64 (1 of 2 - PCV) 1988 Depression screening for age 12+ 1994 BMI (ht and wt on same day) for age 18+ 01/16/2019 01/16/2018, 12/27/2017, 12/11/2017, Additional history exists COVID-19 vaccine series (2022-24 season) 2023 Pap test for age 21-65 [...] history exists Medical Devices Implanted Type Area Gas Station Cashier Device Identifier Shelf Expiration Date Model / Serial / Lot Stent Uret [id number] Contour - [id number] Implanted:Qty: 1 on 04/24/2023 by Romaine Rivero MD at [facility] Left: Ureter [facility] 11/28/2025 [id number] / / [id number] Description:NO STICKER SJ 08/05 Explanted Type Area Gas Station Cashier Device Identifier Shelf Expiration Date Model / Serial / Lot Stent Uret [id number] Tria Soft No Guidewire - [id number] Implanted:Qty: 1 on 04/01/2023 by Romaine Rivero MD at [facility] Explanted:Qty: 1 on 04/24/2023 at [facility] Left: Ureter [facility] 09/22/2025 [id number] / / [id number] Description:NOT CHECKED DF Procedures Procedure Name Priority Date/Time Associated Diagnosis Comments AMB EPIDURAL STEROID INJECTION Routine 01/30/2024 8:03 AM CDT Lumbar radiculopathy DDD (degenerative disc disease), lumbar MR SPINE LUMBAR WO Routine 01/25/2024 11 :21 AM CDT Lumbar radiculopathy DDD (degenerative disc disease), lumbar TRICHOMONAS, YOHANNES, AND BACTERIAL VAGINOSIS BY ROSY [...] thoracic facet joint Peripheral polyneuropathy Scapulothoracic Bursitis LC HIV-1/O/2, 4TH GENERATION Early AM 03/27/2023 5:59 AM CDT LC HCV ANTIBODY RFX TO QUANT PCR Timed 03/26/2023 10:16 AM CDT HPV THIN PREP Routine 06/03/2022 12:40 PM CDT from Last 3 Months or Most Recently Relevant to Health Maintenance Results * MR SPINE LUMBAR WO (01/25/2024 11:21 AM CDT) Anatomical Region Laterality Modality Spine, LUMBAR SPINE Magnetic Res onance 01/25/2024 12:0 0 PM CDT Impressions 01/25/2024 12:00 PM CDT 1. Normal alignment. No fractures. 2. Mild marrow edema of the articular processes of the left L3-4 facet joint which may be secondary to stress reaction or mild inflammation 3. At L3-4, progressive disc degeneration. Posterior disc bulge. Mild narrowing of the spinal canal and left neural foramen. 4. No spinal canal or neural foraminal narrowing at the remaining levels Dictated by Robin Gavin MD @ 01/25/2024 12:00:33 PM (Electronically Signed) Narrative 01/25/2024 12:00 PM CDT For Patients: ??As a result of the Century Cures Act, medical imaging exams and procedure reports are released immediately into your electronic medical record. ??You may view this report before your referring provider. ??If you have questions, please contact your health care provider. INDICATION: Lumbar radiculopathy. COMPARISON: 10/09/2014. CT 11/13/2023. Technique Sagittal T1, T2, and STIR sequences. Axial T1 and T2 weighted sequences. FINDINGS: Normal vertebral body alignment. No fractures. No vertebral body loss of height. No spondylolisthesis. No ligamentous injury. No suspicious osseous lesions. Normal conus terminates at L1. There is mild marrow edema of the articular processes of the left L3-4 facet joint which may be secondary to stress reaction or mild inflammation from facet arthritis. T11-12: Stable disc degeneration and loss disc height. No narrowing of the spinal canal. No neural foraminal narrowing. T12-L1 L1-2 L2-3: No spinal canal neural foraminal narrowing. L3-4: Progressive disc degeneration and loss disc height. Posterior disc bulging with flattening of ventral thecal sac. Mild narrowing of spinal canal. Mild narrowing of the left neural foramen. No narrowing of the right neural foramen. L4-5: Annular bulge. No narrowing of spinal canal. No neural foraminal narrowing. L5-S1: No narrowing of the spinal canal. No impingement of the traversing S1 nerve roots. No neural foraminal narrowing. Normal visualized SI joints. Normal paraspinal soft tissues. Procedure Note Robin Gavin MD, PhD - 01/25/2024 For Patients: As a result of the Cures Act, medical imagingexams and procedure reports are released immediately into your electronicmedical record. You may view this report before your referring provider.If you have questions, please contact your health care provider. INDICATION: Lumbar radiculopathy. COMPARISON: 10/09/2014. CT 11/13/2023. Technique Sagittal T1, T2, and STIR sequences. Axial T1 and T2 weightedsequences. FINDINGS: Normal vertebral body alignment. No fractures. No vertebral body loss ofheight. No spondylolisthesis. No ligamentous injury. No suspicious osseouslesions. Normal conus terminates at L1. There is mild marrow edema of the articular processes of the left L3-4facet joint which may be secondary to stress reaction or mild inflammationfrom facet arthritis. T11-12: Stable disc degeneration and loss disc height. No narrowing of thespinal canal. No neural foraminal narrowing. T12-L1 L1-2 L2-3: No spinal canal neural foraminal narrowing. L3-4: Progressive disc degeneration and loss disc height. Posterior discbulging with flattening of ventral thecal sac. Mild narrowing of spinalcanal. Mild narrowing of the left neural foramen. No narrowing of theright neural foramen. L4-5: Annular bulge. No narrowing of spinal canal. No neural foraminalnarrowing. L5-S1: No narrowing of the spinal canal. No impingement of the traversingS1 nerve roots. No neural foraminal narrowing. Normal visualized SI joints. Normal paraspinal soft tissues. IMPRESSION: 1. Normal alignment. No fractures. 2. Mild marrow edema of the articular processes of the left L3-4 facetjoint which may be secondary to stress reaction or mild inflammation 3. At L3-4, progressive disc degeneration. Posterior disc bulge. Mildnarrowing of the spinal canal and left neural foramen. 4. No spinal canal or neural foraminal narrowing at the remaining levels Dictated by Robin Gavin MD @ 01/25/2024 12:00:33 PM (Electronically Signed) Ren Starks MD MR * (ABNORMAL) TRICHOMONAS, YOHANNES, AND BACTERIAL VAGINOSIS BY ROSY (11/13/2023 7:47 PM CDT) YOHANNES SPECIES Negative Negative 5:28 PM CDT [facility] YOHANNES GLABRATA Negative Negative 11/14/2023 5:28 PM CDT [facility] TRICHOMONAS VVA Negative Negative 5:28 PM CDT [facility] BACTERIAL VAGINOSIS Positive(A) Negative 11/14/2023 5:28 PM CDT [facility] Other VAGINAL SWAB / Unknown Non-Blood / Unknown 11/13/2023 7:47 PM CDT 11/13/2023 7:51 PM CDT Joann Ogden NP MICROBIOLOG Y [facility] [address] [place] [address], [place] * US PELVIS COMPLETE TA AND [...] 11/13/2023 7:52:16 PM (Electronically Signed) Joann Ogden VC++ DEVELOPER US * CT ABDOMEN PELVIS W (11/13/2023 [...] pelvis with intravenous contrast, 100 cc of [id number]. Please note that all CT scans at [...] 11/13/2023 6:18:34 PM (Electronically Signed) Joann Ogden NP CT * (ABNORMAL) URINALYSIS MICROSCOPIC (11/13/2023 5:04 PM CDT) RBC 0-2 0-2, None Seen /HPF 11/13/2023 5:25 PM CDT [facility] WBC 3-5 0-2, 3-5, None Seen /HPF 11/13/2023 5:25 PM CDT [facility] BACTERIA Moderate(A) None Seen, Rare, Few Bacteria/ HPF 11/13/2023 5:25 PM CDT [facility] EPITHELIAL CELLS Moderate(A) None Seen, Few Epi/HPF 11/13/2023 5:25 PM CDT [facility] Mucus Present 11/13/2023 5:25 PM CDT [facility] Urine URINE SPECIMEN / Unknown Non-Blood / Unknown 11/13/2023 5:04 PM CDT 11/13/2023 5:13 PM CDT Joann Ogden NP URINE [facility] [address] [place] [id number] * URINE CULTURE (11/13/2023 5:04 PM CDT) CULTURE No growth (<1,000 CFU/mL) 11/14/2023 3:11 PM CDT [facility] Urine URINE SPECIMEN / Unknown Add On / Unknown 11/13/2023 5:04 PM CDT 11/13/2023 6:41 PM CDT Joann Ogden VC++ DEVELOPER MICROBIOLOG Y [facility] [address] [place] [address], [place] * (ABNORMAL) UA W/ SEDIMENT EXAM REFLEXED PER CRITERIA (11/13/2023 5:04 PM CDT) COLOR Yellow Yellow Color 11/13/2023 5:24 PM CDT [facility] CLARITY Clear Clear Clarity 11/13/2023 5:24 PM [facility] SPECIFIC GRAVITY,URINE 1.025 1.010, 1.015, 1.020, 1.025 11/13/2023 5:24 PM [facility] PH,URINE 6.0 6.0, 7.0, 8.0, 5.5, 6.5, 7.5, 8.5 11/13/2023 5:24 PM [facility] UROBILINOGEN, QUALITATIVE Normal Normal EU/dl 11/13/2023 5:24 PM [facility] PROTEIN, URINE Negative Negative mg/dL 11/13/2023 5:24 PM [facility] GLUCOSE, URINE Negative Negative mg/dL 11/13/2023 5:24 PM [facility] KETONES,URINE Negative Negative mg/dL 11/13/2023 5:24 PM [facility] BILIRUBIN,URI NE Negative Negative 11/13/2023 5:24 PM [facility] OCCULT BLOOD,URINE Large(A) Negative 11/13/2023 5:24 PM [facility] NITRITE Negative Negative 11/13/2023 5:24 PM [facility] LEUKOCYTE ESTERASE Small(A) Negative 11/13/2023 5:24 PM [facility] Urine URINE SPECIMEN / Unknown Non-Blood / Unknown 11/13/2023 5:04 PM CDT 11/13/2023 5:13 PM CDT Joann Ogden NP URINE Performing Organization Address City/[facility]/ZIP Co de Phone Number [facility] [address] [place] [address] * BLOOD CULTURE (11/13/2023 4:55 PM CDT) Only the most recent of2 resultswithin the time period is included. Pathologist [facility] CULTURE No Growth. 11/18/2023 5:28 PM CDT [facility] Blood BLOOD SPECIMEN / Unknown IV Start / Unknown 11/13/2023 4:55 PM CDT 11/13/2023 5:10 PM CDT Joann Ogden VC++ DEVELOPER MICROBIOLOG Y [facility] [address] [place] [address] * (ABNORMAL) CBC WITH AUTO DIFFERENTIAL (11/13/2023 4:49 PM CDT) WHITE BLOOD COUNT 8.2 4.5 - 11.0 thou/cu mm 11/13/2023 5:04 PM CDT [facility] RED BLOOD COUNT 4.41 4.00 - 5.20 mil/cu mm 11/13/2023 5:04 PM CDT [facility] HEMOGLOBIN 13.4 12.0 - 16.0 g/dL 11/13/2023 5:04 PM T [facility] HEMATOCRIT 40.2 33.0 - 51.0 % 11/13/2023 5:04 PM [facility] MCV 91 80 - 100 fL 11/13/2023 5:04 PM T [facility] MCH 30.4 26.0 - 34.0 pg 11/13/2023 5:04 PM T [facility] MCHC 33.3 32.0 - 36.0 g/dL 11/13/2023 5:04 PM [facility] RDW 15.1 11.5 - 15.5 % 11/13/2023 5:04 PM [facility] PLATELET COUNT 225 140 - 440 thou/cu mm 11/13/2023 5:04 PM [facility] MPV 9.6 6.5 - 11.0 fL 11/13/2023 5:04 PM [facility] % NEUT 53.5 % 11/13/2023 5:04 PM T [facility] % LYMPH 37.8 % 11/13/2023 5:04 PM [facility] % MONO 7.1 % 11/13/2023 5:04 PM [facility] % EOS 1.0 % 11/13/2023 5:04 PM [facility] % BASO 0.6 % 11/13/2023 5:04 PM [facility] ABSOLUTE NEUTROPHILS 4.4 1.7 - 7.0 thou/cu mm 11/13/2023 5:04 PM [facility] ABSOLUTE LYMPHOCYTES 3.1(H) 0.9 - 2.9 thou/cu mm 11/13/2023 5:04 PM [facility] ABSOLUTE MONOCYTES 0.6 <0.9 thou/cu mm 11/13/2023 5:04 PM [facility] ABSOLUTE EOSINOPHILS 0.1 <0.5 thou/cu mm 11/13/2023 5:04 PM T [facility] ABSOLUTE BASOPHILS 0.1 <0.3 thou/cu mm 11/13/2023 5:04 PM [facility] Blood BLOOD SPECIMEN / Unknown Butterfly / Unknown 11/13/2023 4:49 PM CDT 11/13/2023 5:00 PM T Joann Ogden NP HEMATOLOGY [facility] [address] [place] [address] * LACTATE VENOUS (11/13/2023 4:49 PM CDT) [facility] LACTATE,VENOUS 0.8 0.5 - 2.0 mmol/L 11/13/2023 5:27 PM CDT [facility] Blood BLOOD SPECIMEN / Unknown Butterfly / Unknown 11/13/2023 4:49 PM CDT 11/13/2023 5:00 PM CDT Joann Ogden VC++ DEVELOPER CHEMISTRY [facility] [address] [place] [address] * ,SERUM (11/13/2023 4:49 PM CDT) [facility] ,SERU M Negative Negative 11/13/2023 5:13 PM CDT [facility] Blood BLOOD SPECIMEN / Unknown Butterfly / Unknown 11/13/2023 4:49 PM CDT 11/13/2023 5:03 PM CDT Joann Ogden VC++ DEVELOPER CHEMISTRY [facility] [address] [place] [address] * (ABNORMAL) COMP METABOLIC PANEL (11/13/2023 4:49 PM CDT) [facility] SODIUM 136 136 - 145 mmol/L 11/13/2023 5:27 PM CDT [facility] POTASSIUM 3.9 3.5 - 5.1 mmol/L 11/13/2023 5:27 PM CDT [facility] CHLORIDE 101 98 - 107 mmol/L 11/13/2023 5:27 PM CDT [facility] CO2,TOTAL 26 22 - 29 mmol/L 11/13/2023 5:27 PM CDT [facility] ANION GAP 9 5 - 18 11/13/2023 5:27 PM CDT [facility] GLUCOSE 87 70 - 99 mg/dL 11/13/2023 5:27 PM [facility] CALCIUM 9.6 8.6 - 10.0 mg/dL 11/13/2023 5:27 PM [facility] BUN 16 6 - 20 mg/dL 11/13/2023 5:27 PM [facility] CREATININE 1.04(H) 0.50 - 0.90 mg/dL 11/13/2023 5:27 PM [facility] BUN/CREAT RATIO 15 10 - 20 5:27 PM [facility] eGFR 69(L) >90 mL/min/1.7 3m2 11/13/2023 5:27 PM [facility] Comment:As of 2021, eG FR is calculated by the CKD-EPI creatinine equation without race adjustment. ??eGFR can be influenced by muscle mass, exercise, and diet. ??The reported eGFR is an estimation only and is only applicable if the renal function is stable. ALBUMIN 4.5 4.0 - 4.9 g/dL 11/13/2023 5:27 PM [facility] PROTEIN,TOTAL 6.8 6.0 - 8.0 g/dL 11/13/2023 5:27 PM [facility] BILIRUBIN,TOTAL 0.3 0.0 - 1.2 mg/dL 11/13/2023 5:27 PM [facility] ALK PHOSPHATASE 55 35 - 104 IU/L 11/13/2023 5:27 PM [facility] ALT (SGPT) 7(L) 10 - 35 IU/L 11/13/2023 5:27 PM [facility] AST (SGOT) 21 10 - 35 IU/L 11/13/2023 5:27 PM [facility] Blood BLOOD SPECIMEN / Unknown Butterfly / Unknown 11/13/2023 4:49 PM CDT 11/13/2023 5:00 PM CDT Joann Ogden NP CHEMISTRY [facility] [address] [place] [address] * MR SPINE CERVICAL WO (11/06/2023 10:52 [...] Shallow posterior disc bulge. Bilateral uncinate spurring. [id number] facet arthropathy. No spinal canal or neural [...] preserved. No acute fracture or spondylolisthesis. No [id number] lesions. The cervical cord is normal in [...] C5-6: Shallow posterior disc bulge. Bilateral uncinate spurring.[id number] facet arthropathy. No spinal canal or neural [...] (Electronically Signed) Ren Starks MD MR * LC HIV-1/O/2, 4TH GENERATION (03/27/2023 5:59 AM CDT) Pathologist [facility] HIV Scr 4th Gen Non Reactive Non Reactive 03/29/2023 10:06 PM CDT [facility] ([facility]) Comment: HIV Negative HIV-1/HIV-2 antibodies and HIV-1 p24 antigen were NOT detected. There is no laboratory evidence of HIV infection. Blood BLOOD SPECIMEN / Unknown Butterfly / Unknown 03/27/2023 5:59 AM CDT 03/27/2023 6:06 AM CDT Narrative [facility] ([facility]) - 03/29/2023 10:06 PM CDT Performed at: ??[address] ??[id number] Management Assistant: Milo Shanks MD, Phone: ??[phone] Ginna Rizo MD LABORATORY [facility] ([facility]) [address] [place] [address], * LC HCV ANTIBODY RFX TO QUANT PCR (03/26/2023 10:16 AM CDT) Pathologist [facility] HCV Ab Non Reactive Non Reactive 03/29/2023 10:06 PM CDT [facility] ([facility]) Blood BLOOD SPECIMEN / Unknown Butterfly / Unknown 03/26/2023 10:16 AM CDT 03/26/2023 10:33 AM CDT Narrative [facility] ([facility]) - 03/29/2023 10:06 PM CDT Performed at: ??[address] ??[id number] Management Assistant: Milo Shanks MD, Phone: ??[phone] Ginna Rizo MD LABORATORY Performing Organization Address City/[facility]/ZIP Co de Phone Number [facility] ([facility]) [facility] [address] * HPV HIGH RISK (06/03/2022 12:40 PM CDT) TYPE 16 Negative Negative 06/07/2022 3:19 PM CDT [facility] TRAL LAB[facility]AT[facility] TYPE 18 Negative Negative 06/07/2022 3:19 PM CDT [facility] OTHER HIGH RISK TYPES Negative Negative 06/07/2022 3:19 PM CDT [facility] TR[facility] Other (Cervical) 06/03/2022 12:40 PM CDT 06/07/2022 7:17 AM CDT [facility] - 06/07/2022 3:19 PM CDT HPV types 16, 18, 31, 33, 35, 39, 45, 51, 52, 56, 58, 59, 66 and 68 DNA were undetectable or below the pre-set threshold. Methodology: Santos Alison 4800 HPV Test Katerina Trujillo MD MICROBIOLOGY [facility] [address] [place] [address], [place] from Last 3 Months or Most Recently [...] Preferences, Provider to review later Care Teams Reproductive Healthcare Assistant Relationship Specialty Start Date End Date Katerina Trujillo MD [address] [place] [address] PCP - General Obstetrics and Gynecology 03/06/20
--- OUTSIDE RECORDS SUMMARY | 2024-01-30 13:36 | XMS_ITS | Continuity of Care Document ---
Author Organization [facility] mildred Address [address] [place] [address] [place] [address] Phone Care Team Providers Care Latin Teacher Name Role Phone Will MD JONES, Jacky Unavailable Unavailabl e Allergies, Adverse Reactions, Alerts Substance Reaction Status Criticality morphine Active No Information OXYMETAZOLINE HCL Active No Informa tion Procedures Procedure Date OFFICE/OUTPATIENT VISIT, EST Cancelled Appt Fee OFFICE/OUTPATIENT VISIT, EST OFFICE/OUTPATIENT VISIT, EST OFFICE/OUTPATIENT VISIT, EST OFFICE/OUTPATIENT VISIT, EST OFFICE/OUTPATIENT VISIT, EST OFFICE/OUTPATIENT VISIT, EST OFFICE/OUTPATIENT VISIT, EST OFFICE/OUTPATIENT VISIT, EST OFFICE/OUTPATIENT VISIT, EST OFFICE/OUTPATIENT VISIT, EST OFFICE/OUTPATIENT VISIT, EST OFFICE CONSULTATION Advance Directives Directive Yes / No Effective Date File Name No Information Encounters Encounter Description Practice Location Reason(s) For Visit Diagnoses Date Provider Providers Copied on Encounter [facility], [address] [facility] [address] [place], [id number] , [place] tel: [phone] [facility] [place] No Information 2 Will Jacky. [address] Ernesto [place], [place], [id number] , [place]. tel: [phone] OFFICE/OUTPAT IENT VISIT, EST [facility], [address] Ernesto [place], [place], [id number] , [place] tel: [phone] [facility] [place] low back pain (chief complaint) Chronic pain syndromeLow back pain Nov-3 0-201 8 Misty Mercedes. [address] [place], [id number] , [place]. tel: [phone] Referring Provider: Ren Starks [facility] [address] [place], [address]. [phone] [facility], [address] [place]ry [place], [id number] , [place] tel: [phone] [facility] [place] No Information Nov-2 3-201 6 Will Jacky. [address] [facility] [address] [place], [id number] , [place]. tel: [phone] Referring Provider: Ren Starks [facility] [address] [place], [address]. [phone] OFFICE/OUTPAT IENT VISIT, [facility], [address] Ernesto [place], [place], [id number] , [place] tel: [phone] [facility] [place] low back pain (chief complaint) Low back painLumbago with sciatica, left sideLumbago with sciatica, right side Nov-0 8-201 6 Misty Mercedes. [address] [place] [place], [id number] , [place]. tel: [phone] Referring Provider: Ren Starks [facility] [address] [place], [address]. [phone] OFFICE/OUTPAT IENT VISIT, [facility], [address] [place]esto [place], [place], [id number] , [place] tel: [phone] [facility] [place] low back pain (chief complaint) Low back painChronic pain syndrome Nov-0 2-201 6 Misty Mercedes. [address] [facility] Tracy Orozco [place], [place], [id number] , [place]. tel: [phone] Referring Provider: Ren Starks [facility] [address] [place], [address]. tel:[phone] OFFICE/OUTPAT IENT VISIT, [facility], [address] [place] [address] [place]akes[place], [id number] , [place] tel: [phone] [facility] [place] low back pain (chief complaint) Low back painCervicalgiaChro mildred pain syndrome Oct-0 4-201 6 Van José Miguel Luis. [address] [facility] [place], [id number] , [place]. tel: [phone] Referring Provider: Ren Starks, [facility] [address] [facility], [place], [address]. tel:[phone] OFFICE/OUTPAT IENT VISIT, [facility], [address] [place] [address] Ernesto [place], [place], [id number] , [place] tel: [phone] [facility] low back pain (chief complaint) Low back painChronic pain syndrome Sep-0 9-201 6 Misty Mercedes. [address] [place] [address] [facility] [place], [id number] , [place]. tel: [phone] Referring Provider: Ren Starks [facility] [address] [place], [address]. tel:[phone] OFFICE/OUTPAT IENT VISIT, [facility], [address] [place] [address] Ern[place], [place], [id number] , [place] tel: [phone] [facility] low back pain (chief complaint) Low back painLumbago with sciatica, right sideLumbago with sciatica, left sideChronic pain syndrome Aug-2 5-201 6 Misty Mercedes. [address] [facility] Ernesto [place], [place], [id number] , [place]. tel: [phone] Referring Provider: Ren Starks [facility] [address] [place], [address]. tel:[phone] OFFICE/OUTPAT IENT VISIT, [facility], [address] [place] [address] [place], [id number] , [place] tel: [phone] [facility] [place] low back pain (chief complaint) Low back painLumbago with sciatica, left sideLumbago with sciatica, right side Feb- 7 6 Misty Mercedes. [address] [facility] Tracy [place]roz[place], [id number] , [place]. tel: [phone] Referring Provider: Ren Starks [facility] [address] [place], [address]. tel:[phone] OFFICE/OUTPAT IENT VISIT, [facility], [address] [facility] [address] Rakesh [place], [id number] , [place] tel: [phone] [facility] [place] low back pain (chief complaint) Low back painLumbago with sciatica, right sidePain in right hipLumbago with sciatica, left sidePain in left kneePain in right knee 6 Misty Mercedes. [address] [facility]esto [facility] [place] [place], [id number] , [place]. tel: [phone] Referring Provider: Ren Starks, [facility] [address] [place], [address]. [phone] OFFICE/OUTPAT IENT VISIT, [facility], [address] [facility] [address] [place], [id number] , [place] tel: [phone] [facility] [place] Back Pain (chief complaint) Pain in right hipLow back painPain in right kneePain in left knee 6 Misty Mercedes. [address] [facility] [place] [facility] [place], [id number] , [place]. tel: [phone] Referring Provider: Ren Starks [facility] [address] [place], [address]. tel:[phone] OFFICE/OUTPAT IENT VISIT, [facility], [address] [facility] [place], [id number] , [place] tel: [phone] [facility] [place] Back Pain (chief complaint) Low back painPain in right hipLumbago with sciatica, right sideLumbago with sciatica, left sideChronic pain syndrome Nov-2 7201 6 Misty Mercedes. [address] [place], [id number] , [place]. tel: [phone] Referring Provider: Ren Starks [facility] [address] [place], [address]. [phone] OFFICE/OUTPAT IENT VISIT, EST [facility], [address] [place], [id number] , [place] tel: [phone] [facility] [place] Back Pain (chief complaint) Pain in right hip Oct-2 6 Misty Mercedes. [address] [place], [id number] , [place]. tel: [phone] Referring Provider: Ren Starks [facility] [address] [place], [address]. tel:[phone] OFFICE/OUTPAT IENT VISIT, EST [facility], [address] [place], [id number] , [place] tel: [phone] [facility] [place] Back Pain (chief complaint) Low back painLumbago with sciatica, left sideLumbago with sciatica, right sideCervicalgia Oct-1 5-201 6 Misty Mercedes. [address] [place] [place], [id number] , [place]. tel: [phone] Referring Provider: Ren Starks [facility] [address] [place], [address]. [phone] OFFICE CONSULTATION [facility], [address] [place], [id number] , [place] tel: [phone] [facility] [place] Back Pain (chief complaint) Low back painLumbago with sciatica, left sideLumbago with sciatica, right sidePain in right hipCervicalgiaLong term (current) use of opiate analgesic Oct-0 8-201 6 Misty Mercedes. [address] [place], [address] , . tel:[phone] Referring Provider: Ren Starks [facility] [address] , [place], [address]. tel:[phone] Family History Family Member Type Diagnosis Age At Onset Father Problem (finding) rheumatoid arthritis Mother Problem (finding) rheumatoid arthritis Payers Payer name Insurance type Covered democrat ID Authoriza tion(s) No Information Social History Type Description Quantity Date Captured Comments Sex Female Smoking Status No Information Chief Complaint And Reason For Visit No Information Reason For Referral Reason For Referral No Information Plan Of Treatment Date Type Action Status Referral Ordered: Neurology (related to Chronic pain syndrome) ordered Referral Ordered: Gurpreet Mcgill MD -Rheumatology (related to Chronic pain syndrome) ordered Referral Ordered: Referrals: Neurology. Location: [facility] Neu[facility]. Consult ordered Referral Referred To: Gurpreet Mcgill MD [facility]
[address] [place], [phone] Ordered: Referrals: Rheumatology. Gurpreet Mcgill MD. Consult ordered Referral Ordered: Chris Chakraborty MD -Orthopedic Surgery (related to Low back pain) ordered Referral Ordered: MRI LUMBAR SPINE W/O DYE spine, lumbar ordered Referral Referred To: Chris Chakraborty MD [facility]
[address] [place], [phone] Ordered: Referrals: Orthopedic Surgery. Chris Chakraborty MD. Location: [facility]. Consult ordered History Of Present Illness Encounter Date Complaint History Of Prese nt Illness low back pain (comments) Patient is here for a f/u. Has #0 oxycodone remaining - appropriate. Medications are effective at relieving pain without SE. Alejandra has been doing alright since she was here in 2015. Her went well and the baby is healthy. She states her peripheral neuropathy has been flaring up, causing a lot of pain in her legs. She has been exercising as much as she can. Her pain has gotten really bad recently and she was hoping she could get some pain medication. She is not interested in any procedures at the moment. low back pain Severity level i s 5. Duration: chronic. The problem is worsening. It occurs persistently. Location of pain is lower back.The patient describes the pain as an ache, burning and sharp. Symptoms are aggravated by bending, twisting, walking and prolonged positioning. Symptoms are relieved by lying down, over the counter medication, pain meds/drugs, rest and changing positions. low back pain Severity level i s moderate-severe. Duration: chronic. The problem is worsening. It occurs persistently. Location of pain is lower back and legs.The patient describes the pain as an ache and sharp. Symptoms are aggravated by daily activities. Symptoms are relieved by pain meds/drugs and rest. low back pain (comments) Alejandra is here today for follow up evaluation and medication refills relating to her low back pain. She has #2 oxycodone remaining - on track. She states her pain has been worse with her decreased opioid dosage but we will continue to reduce her medication due to her . She is currently being followed by [facility] who we tried contacting during the visit but were unable to connect with. The patient is currently doing acupuncture. She recently completed labs through Neurology. No other concerns today. low back pain Severity level i s moderate-severe. Duration: chronic. The problem is worsening. It occurs persistently. Location of pain is lower back. Pain is radiated to the left calf, right calf, left thigh and right thigh.The patient describes the pain as an ache and sharp. Symptoms are aggravated by daily activities. Symptoms are relieved by pain meds/drugs and rest. low back pain (comments) Alejandra is here today for follow up evaluation and medication refills relating to her low back pain. She has #21 oxycodone and #4 OxyContin remaining - short. His kids father recently and she has been experiencing more stress. She started following up with a therapist and is considering following up with a encoding machine operator. She has not followed up with Rheuamtology. The patient states her pain has been worse lately. The patient is currently and is following up with an OB at [facility] who discontinued tizanidine and gabapentin. No other concerns today. low back pain Severity level i s moderate. Duration: chronic. The problem is worsening. It occurs persistently. Location of pain is lower back.The patient describes the pain as an ache and sharp. Symptoms are aggravated by daily activities. Symptoms are relieved by lying down, pain meds/drugs and rest. low back pain (comments) Alejandra is here today for follow up evaluation and medication refills relating to her low back pain. She has #35 oxycodone and #9 OxyContin remaining - on track. The patient states her pain has been worse lately and she is unsure if it is due to changes in her medication regimen. Neurology did not think she would be a good candidate for SCS. The patient c/o muscle spasms. Her childrens father yesterday so she has been more stressed. She does home exercises regularly and is doing TPI with another provider. No other concerns today. low back pain (comments) Alejandra is here today for follow up evaluation and medication refills relating to her low back pain. She has #6 oxycodone remaining - on track. She followed up with Neurology and states her biopsy results were normal but she was diagnosed with small fiber peripheral neuropathy. She rescheduled her appointment with Dr. Mcgill because she missed her appointment. Her pain recently flared and she received IV morphine from the [facility]. The patient states the current medication regimen continues to be effective for reducing pain but she is having trouble sleeping due to pain. She does not tolerate higher dosages of gabapentin and states her insurance will not approve 6 tablets of oxycodone a day. No other concerns today. low back pain Severity level i s moderate-severe. Duration: chronic. The problem is worsening. It occurs persistently. Location of pain is lower back.The patient describes the pain as an ache, sharp and tingling. Symptoms are aggravated by bending, daily activities, lifting and twisting. Symptoms are relieved by pain meds/drugs. low back pain Severity level i s moderate-severe. Duration: chronic. The problem is worsening. It occurs persistently. Location of pain is middle back and lower back. Pain is radiated to the left calf, right calf and right thigh.The patient describes the pain as an ache, sharp and tingling. Symptoms are aggravated by ascending stairs, bending, lifting, standing, twisting, walking and movement. Symptoms are relieved by massage, pain meds/drugs, physical therapy and rest. low back pain (comments) Alejandra is here today for follow up evaluation and medication refills relating to her low back pain. She lost her medication. She followed up with Neurology who is completing extensive evaluation and recommended that the patient follow up with Rheumatology. She has a visit scheduled with Dr. Mcgill next week. She recently moved back to the [facility] from [place]. She started TPI with a new provider which has helped reduce some of her leg pain. No other concerns today. low back pain Severity level i s moderate-severe. Duration: chronic. The problem is stable. It occurs persistently. Location of pain is lower back, gluteal area and groin. Pain is radiated to the left calf, right calf, left thigh and right thigh.The patient describes the pain as an ache, grinding and weakness. Symptoms are aggravated by ascending stairs, lifting, running, walking, housework and movement. Symptoms are relieved by pain meds/drugs, physical therapy and standing. low back pain (comments) Alejandra is here today for follow up evaluation and medication refills relating to her low back pain. She has no medication remaining - 0.5 days short. She will be following up with Neurology and Rheumatology in March. The patient continues PT and has been doing some dry needling with her therapist. She is currently recovering from a UTI and her goal is to return to work. No other concerns today. low back pain (comments) Alejandra is here today for follow up evaluation and medication refills relating to her low back pain. She has no medication remaining. Her pain has been worse lately due to a flare of her shingles in her right buttock and she is being followed by her PCP for this. She had to reschedule Neurology and Rheumatology due to transportation issues. She had an MRI of her right knee and will be starting PT. Her grandmother recently which has cuased more stress. She will be getting next March. She will be moving to [place] but plans to continue her care and PT in the [facility]. No other concerns today. low back pain Severity level i s moderate-severe. Duration: chronic. The problem is stable. It occurs persistently. Location of pain is lower back, gluteal area, left hip and bilateral knees. Pain is radiated to the left foot, right foot, left thigh and right thigh.The patient describes the pain as an ache. Symptoms are aggravated by standing and walking. Symptoms are relieved by pain meds/drugs and physical therapy. Back Pain (comments) Alejandra is here today for follow up evaluation and medication refills relating to her low back and right leg pain. She has no medication remaining - 0.5 days short. She states her worst pain is in her left thigh and bilateral knees. She followed up with [facility] for a MRI of both knees and is currently using tape on her knees because her patellas are slightly elevated. She has appointments scheduled with Neurology and Rheumatology. She does home exercises when she can. She has not noticed any benefit from Lyrica and states it causes foggy SE. No other concerns today. Back Pain Severity level i s moderate-severe. Duration: chronic. The problem is fluctuating. It occurs persistently. Location of pain is lower back, right leg, bilateral knees and bilateral feet. Pain is radiated to the left thigh and right thigh.The patient describes the pain as an ache and sharp. Symptoms are aggravated by standing and walking. Symptoms are relieved by pain meds/drugs. Back Pain (comments) Alejandra is here today for follow up evaluation and medication refills relating to her low back pain. She has no medication remaining and this is appropriate because her pharmacy only filled #155 tabs. She followed up [facility] and states they didn't have any recommendations because she doesn't have a formal diagnosis. Her PCP believes her pain is related to her hip. She recently started PT. She continues to experience weakness in her legs and has not had a neurological consult. She has not received any relief from Lyrica at her current dosage. She is concerned that she has not had a period in a long time. No other concerns today. Back Pain Severity level i s severe. Duration: chronic. The problem is fluctuating. It occurs persistently. Location of pain is lower back and left hip. Pain is radiated to the left calf, right calf, left thigh and right thigh.The patient describes the pain as sharp. Symptoms are aggravated by daily activities. Symptoms are relieved by pain meds/drugs. Back Pain Severity level i s moderate-severe. Duration: chronic. The problem is stable. It occurs intermittently. Location of pain is rigyht.The patient describes the pain as an ache, burning, sharp and tingling. Symptoms are aggravated by exertion, standing and sitting. Symptoms are relieved by pain meds/drugs. Back Pain (comments) Alejandra is here today for follow up evaluation and medication refills relating to her right hip pain. She has #7 oxycodone remaining - on track. She will be following up with Dr. Moody in early November who is a [employer] redevelopment specialist. However her back pain has improved and her pain is now primarily located in her right thigh and hip. She will following up with Dr. Van for further hip evaluation. She had an episode of severe swelling in her arm and is concerned about this. No other concerns today. Back Pain (comments) Alejandra is here today for follow up evaluation and medication refills relating to her back pain. She has #26 Percocet remaining - 1 day short. She won't be able to follow up with Dr. Chakraborty until November due to insurance reasons. She has her MRI scheduled tonight. She felt like OxyContin caused uncomfortable SE and was not effective so this was discontinued at our last visit. She c/o severe radicular pain in her legs. She continues to experience urinary and bladder symptoms along with weakness in her legs. She is concerned about not being able to return to work. No other concerns today. Back Pain Severity level i s moderate-severe. Duration: chronic. The problem is fluctuating. It occurs persistently. Location of pain is lower back and neck. Pain is radiated to the left calf, right calf, left thigh and right thigh.The patient describes the pain as an ache. Symptoms are aggravated by ascending stairs, sitting, standing and prolonged positioning. Symptoms are relieved by pain meds/drugs. Back Pain (comments) This patien t is referred by Dr. Ren Moody.Nya is here today for her initial consult regarding her back which began at a young age when she fractured a vertebrae. She has not followed up with a spinal surgeon in a long time and states that in the past surgery was not recommended. She experiences occasional radicular symptoms in her legs which has worsened over time. She also has experienced episodes of loss of bladder control and foot drag in the past. She had hip surgery 2 years ago after slamming into a wall and will be following up for additional imaging at [facility]. She states that her pain has become more severe over the past year and she has not had any back imaging completed. She also c/o joint pain in her wrists and knees. The patient has not experienced any care home benefit from back injections. She is primarily looking for continued medication management and states her pain is not well controlled. No other concerns today. Medical records:Dr. Moody - Pain management recordsDr. Mar Castellanos - PCP recordsDr. Rehan at [facility] - hip recordsPast treatment:ChiropracticPTPool therapy - good reliefHip injections Back injectionsPast medication:gabapentin - GI upset Lyrica - not coveredNSAIDS - not an option Back Pain Onset: gradual w ith injury. Severity level is severe. Duration: chronic. Location of pain is lower back, gluteal area, neck and right hip. Pain is radiated to the left arm, right arm, left calf, right calf, left thigh and right thigh.The patient describes the pain as an ache and burning. Symptoms are aggravated by walking and movement. Symptoms are relieved by pain meds/drugs. Functional Status Date Functional Assessmen t No Information Instructions Date Instruction Additional Infor mation No Information Assessments Type Assessment Date No Information Patient Care Teams Name Effective Dates (start - stop) Status Members No Information
== END 2024-01-30 13:34 | disposition home or self-care (01) ==
PROVIDERS: PCP Family Medicine; Visit Provider Family Medicine
DX: M54.16 Radiculopathy, lumbar region (principal); M51.36 Other intervertebral disc degeneration, lumbar region
CPT/HCPCS: 62323; J0702; Q9966

== ENCOUNTER 2025-03-14 20:34 | Emergency (ER) | payer BC, SELFPAY ==
--- OUTSIDE RECORDS SUMMARY | 2025-03-14 20:37 | XMS_ITS | Clinical Summary ---
Author Organization [employer] [facility] Address [address] [place] [id number] Care Team Providers Care Field Appraiser Name Role Phone Katerina Trujillo MD Primary Care Provider [phone] Allergies Active Allergy Reactions Criticality Noted Date [...] Upset 11/04/2006 Intol. Bupropion Seizures 01/03/2007 Medications hydrOXYzine HCl (ATARAX) 25 mg tablet Take 25 mg by mouth every 4 hours if needed for Anxiety (sleep). 0 8 Active dextroamphetamine -amphetamine (Adderall XR) 30 mg Extended-Release capsule Take 30 mg by mouth once daily if needed (concentratio n; school). Not currently taking Active pantoprazole (PROTONIX) 40 mg delayed-release tabletIndications :Sepsis due to Gram negative bacteria (HC),Gastroesopha geal reflux disease, unspecified whether esophagitis present Take 1 Tablet (40 mg) by mouth two times daily before meals. 60 Tablet 04/06/2023 9:55 AM CDT 3 Active Gavilax 17 gram/dose powder Mix 0.5-1 scoops in liquid then take by mouth once daily if needed for Constipation. 3 Active nicotine 21 mg/24 hr (NICODERM; HABITROL) 21 mg/24 hr patch Apply 21 mg on dry, clean, hairless skin once daily if needed for Nicotine Craving. Active nicotine (NICORETTE) 2 mg gum Chew 2 mg every 2 hours if needed for Nicotine Craving. Active sennosides (SENNA) 8.6 mg tabletIndications :Therapeutic opioid induced constipation Take 1-2 Tablets (8.6-17.2 mg) by mouth 2 times daily if needed for Constipation. 30 Tablet 04/20/2023 4:09 PM CDT 3 Active clotrimazole (LOTRIMIN) 1 % creamIndications: Tinea pedis of both feet Apply topically to affected area(s) two times daily. To both feet5 113 g 1 3 Active buprenorphine HCL (SUBUTEX) 8 mg tabletIndications :Pain medication agreement Place 1.5 Tablets (12 mg) under the tongue every morning. 30 Tablet 3 Active methocarbamoL (ROBAXIN) 500 mg tabletIndications :DDD (degenerative disc disease), lumbar Take 1-2 Tablets (500-1,000 mg) by mouth every 6 hours if needed for Muscle Spasm PO 1st choice (flank pain). 36 Tablet 2 4 Active albuterol HFA (ProAir HFA) 90 mcg/actuation inhalerIndication s:Cough, unspecified type Inhale 2 Puffs by mouth 4 times daily if needed for Shortness Of Breath. 1 Each 5 Active benzonatate (TESSALON) 100 mg capsuleIndication s:Bronchitis Take 2 Capsules (200 mg) by mouth 3 times daily if needed for Cough. 20 Capsule 5 Active benzonatate (TESSALON) 200 mg capsuleIndication s:Bronchitis Take 1 Capsule (200 mg) by mouth 3 times daily if needed for Cough. 15 Capsule 5 Active albuterol HFA (PRO-AIR; VENTOLIN; PROVENTIL) 90 mcg/actuation inhalerIndication s:Bronchitis Inhale 2 Puffs by mouth 4 times daily if needed for Shortness Of Breath or Wheezing (cough). 1 Each 5 Active predniSONE 20 mg tabletIndications :Cough, unspecified type,Bronchitis Take 2 Tablets (40 mg) by mouth once daily for 5 days. 10 Tablet 5 02/17/20 25 predniSONE (DELTASONE) 20 mg tabletIndications :Bronchitis Take 2 Tablets (40 mg) by mouth once daily for 5 days. 10 Tablet 5 02/27/20 25 amoxicillin 500 mg capsuleIndication s:Strep pharyngitis Take 2 Capsules (1,000 mg) by mouth once daily for 10 days. 20 Capsule 5 03/11/20 25 fluconazole (DIFLUCAN) 150 mg tabletIndications :Strep pharyngitis Take 1 Tablet (150 mg) by mouth one time for 1 dose. 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 05/09/2007 02/05/2009 Periapical abscess without sinus 01/12/2009 Encounters Date Type Department Care Team Description 03/01/2025 1:16 PM CDT - 03/01/2025 2:07 PM CDT Emergency [facility] [address] [place] [address] Bell Bauman PA Bronchitis (Primary Dx); Strep pharyngitis Discharge Disposition: Home Self Care 03/01/2025 Travel 02/21/2025 11:46 AM CDT - 02/21/2025 2:26 PM CDT Emergency [facility] [address] [place] [address] Alise Bangura PA Bronchitis (Primary Dx) Discharge Disposition: Home Self Care 02/21/2025 Travel 02/11/2025 2:39 PM CDT - 02/11/2025 3:35 PM CDT Emergency [facility] [address] [place] [address] Gavino Contreras MD Cough, unspecified type (Primary Dx); Bronchitis Discharge Disposition: Home Self Care 02/11/2025 Travel from Last 3 Months Immunizations Immunization Administration Dates Next Due Influenza, IIV3 (Age [...] file 06/09/2023 Food Insecurity Answer Date Recorded Do you worry your food will run out before you are able to buy more? 1 06/09/2023 Transportation Needs Answer Date Record ed Lack of Transportation (Medical) 1 06/09/2023 Housing Stability Answer Date Recorded What is your housing situation today? 1 06/09/2023 Interpersonal Safety Answer Date Record ed Are you being hit, kicked, p ushed or yelled at (see row info)? 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 Not on file Not on file Not on file Obstetrics History Para Term AB IAB SAB Ectopic Multiple Livin g Live Births 7 5 4 4 5 Date Outcome GA Total Labor Labor/2nd/3rd Weight Sex Type Anes PTL Nan A1 A5 Name Clin 002 Term 40w 0d 3.63 kg (8 lb) M Vag Livin g Delivery Location:[facility] 003 Term 40w 0d 3.69 kg (8 lb 2 oz) F Vag Livin g Delivery Location:[facility] 005 Term 40w 0d 3.52 kg (7 lb 12 oz) M Vag Livin g 7 8 ehresm yecenia Delivery Location:[facility] 008 Para M Vag Livin g ehresm y[place] Delivery Location:[facility] 010 Term 38w 0d 3.4 kg (7 lb 8 oz) M Vag Livin g detert Delivery Location:[facility] Last Filed Vital Signs Vital Sign Reading Time Taken Comments Blood Pressure 118/84 03/01/2025 1:30 PM CDT Pulse 74 03/01/2025 1:30 PM CDT Temperature 36.4 C (97.6 F) 03/01/2025 1:23 PM CDT Respiratory Rate 16 03/01/2025 1:23 PM CDT Oxygen Saturation 98% 03/01/2025 1:30 PM CDT Inhaled Oxygen Concentration - - Weight 59.9 kg (132 lb) 03/01/2025 1:23 PM CDT Height 161.3 cm (5' 3.5) 03/01/2025 1:23 PM CDT Body Mass Index 23.02 03/01/2025 1:23 PM CDT Plan of Treatment Health Maintenance Due Date Last Done Comments Depression screening for age 12+ 1994 Hepatitis B series for 19+ ( 1 of 3 - 19+ 3-dose series) 2001 Pneumococcal series for age 6-49 (1 of 2 - PCV) 2001 BMI (ht and wt on same day) for age 18+ 01/16/2019 01/16/2018, 12/27/2017, 12/11/2017, Additional history exists Pap test for age 21-65 06/03/2023 2, 06/03/2022, 02/17/2020, Additional history exists COVID-19 vaccine series ( season) 2024 Influenza Vaccine (#1) 2025 7, 07/19/2012, 04/29/2010, Additional history exists Tetanus booster 10/14/2026 10/14/2016, 02/07/2011 Hepatitis C screening for ag e 18-79 Completed 03/26/2023, 10/04/2017, 04/26/2016, Additional history exists HIV for age 15-65 Completed 03/27/2023, , 10/04/2017, Additional history exists Medical Devices Implanted Type Area Architectural Representative Device Identifier Shelf Expiration Date Model / Serial / Lot Stent Uret [id number] Contour - [id number] Implanted:Qty: 1 on 04/24/2023 by Romaine Rivero MD at [facility] Left: Ureter [facility] 11/28/2025 [id number] / / [id number] Description:NO STICKER SJ 08/05 Explanted Type Area Architectural Representative Device Identifier Shelf Expiration Date Model / Serial / Lot Stent Uret [id number] Tria Soft No Guidewire - [id number] Implanted:Qty: 1 on 04/01/2023 by Romaine Rivero MD at [facility] Explanted:Qty: 1 on 04/24/2023 at [facility] Left: Ureter [facility] 09/22/2025 [id number] / / [id number] Description:NOT CHECKED DF Procedures Procedure Name Priority Date/Time Associated Diagnosis Comments THROAT RAPID STREP ONLY CLINIC STAT 03/01/2025 1:37 PM CDT EKG 12 LEAD STAT 02/21/2025 1:48 PM CDT CBC WITH AUTO DIFFERENTIAL STAT 02/21/2025 1:39 PM CDT D-DIMER,QUANTITATIVE STAT 02/21/2025 1:39 PM CDT TROPONIN T (HS) ONE TIME STAT 02/21/2025 1:39 PM CDT BASIC METABOLIC PANEL STAT 02/21/2025 1:39 PM CDT CBC WITH AUTO DIFFERENTIAL STAT 02/21/2025 1:39 PM CDT XR CHEST 2 VIEWS PA AND LATERAL STAT 02/21/2025 12:49 PM CDT XR CHEST 2 VIEWS PA AND LATERAL STAT 02/11/2025 3:14 PM CDT LC HIV-1/O/2, 4TH GENERATION Early AM 03/27/2023 5:59 AM CDT LC HCV ANTIBODY RFX TO QUANT PCR Timed 03/26/2023 10:16 AM CDT HPV HIGH RISK Routine 06/03/2022 12:40 PM CDT from Last 3 Months or Most Recently Relevant to Health Maintenance Results * THROAT RAPID STREP (AGE 18+) (03/01/2025 1:37 PM CDT) THROAT RAPID STREP A ANTIGEN Negative 03/01/2025 1:52 PM CDT [facility] Throat SPECIMEN FROM THROAT / Unknown Non-Blood / Unknown 03/01/2025 1:37 PM CDT 03/01/2025 1:42 PM CDT us Bell BLANCA MICROBIOLOGY Final R esult [facility] [address] [place] [address] * EKG 12 LEAD (02/21/2025 1:48 PM CDT) Pathologist [facility] Interpretation Normal sinus rhythm Normal ECG When compared with ECG of 27-Mar-2023 12:11, Non-specific change in ST segment in Inferior leads no STEMI BEYOND NOW Ventricular Rate 87 BPM BEYOND NOW Atrial Rate 87 BPM BEYOND NOW P-R Interval 126 ms BEYOND NOW QRS Duration 78 ms BEYOND NOW QT 378 ms BEYOND NOW QTc 454 ms BEYOND NOW P [place] 60 degrees BEYOND NOW R [place] 79 degrees BEYOND NOW T [place] 69 degrees BEYOND NOW 02/21/2025 1:48 PM CDT 02/21/2025 6:05 PM CDT Alise BLANCA EKG ORD Final R esult Performing Organization Address [facility] Co de Phone Number BEYOND NOW [place], [place] * TROPONIN T (HS) ONE TIME (02/21/2025 1:39 PM CDT) [facility] TROPONIN T HS 7 6-10 ng/L ng/L 02/21/2025 2:03 PM CDT [facility] Blood BLOOD SPECIMEN / Unknown IV Start / Unknown 02/21/2025 1:39 PM CDT 02/21/2025 1:43 PM CDT Narrative [facility] - 02/21/2025 2:03 PM CDT hs-cTnT (Elecsys Troponin T Gen 5) concentration (s) above the sex-specific 99th percentile (16 ng/L or greater for males or 11 ng/L or greater for females) are indicative of myocardial injury. If initial hs-cTnT <=100 ng/L at presentation, a 0h/2h ABSOLUTE (ng/L) delta change (rising or falling) of >=10 ng/L suggests a significant change, whereas a 0h/2h delta change <=3 ng/L suggests no significant change. If initial hs-cTnT >100 ng/L at presentation, a 0h/2h/ RELATIVE (percent, %) delta change of 20% is suggested to distinguish patients with acute vs. chronic myocardial injury. There are multiple etiologies that can cause hs-cTnT increases above the 99th percentile (myocardial injury) other than acute myocardial infarction. Clinical context and careful clinical evaluation are critical for diagnosis and risk-stratification. The diagnosis of acute myocardial infarction requires a rising and/or falling pattern in hs-cTnT concentrations with at least one value above the sex-specific 99th percentile PLUS at least one of the following clinical criteria: ischemic symptoms, new or presumed new significant ST-T wave changes or new LBBB, development of pathological Q waves, imaging evidence of new loss of viable myocardium or new regional wall motion abnormality, or identification of intracoronary atherothrombosis or an acute angiographic culprit on coronary angiography. In appropriate low-risk patients with a non-ischemic electrocardiogram without active chest pain with a symptom onset >3-hours without recurrence, a single initial hs-cTnT<6 ng/L identifies patient with a very low risk in emergency department patient population. Alise BLANCA CHEMISTRY Final R ult [facility] [address] [place] [address] * (ABNORMAL) CBC WITH AUTO DIFFERENTIAL (02/21/2025 1:39 PM CDT) [facility] WHITE BLOOD COUNT 10.1 4.5 - 11.0 thou/cu mm 02/21/2025 1:48 PM CDT [facility] RED BLOOD COUNT 3.35(L) 4.00 - 5.20 mil/cu mm 02/21/2025 1:48 PM CDT [facility] HEMOGLOBIN 11.9(L) 12.0 - 16.0 g/dL 02/21/2025 1:48 PM CDT [facility] HEMATOCRIT 34.4 33.0 - 51.0 % 02/21/2025 1:48 PM [facility] MCV 103(H) 80 - 100 fL 02/21/2025 1:48 PM [facility] MCH 35.5(H) 26.0 - 34.0 pg 02/21/2025 1:48 PM [facility] MCHC 34.6 32.0 - 36.0 g/dL 02/21/2025 1:48 PM [facility] RDW 16.4(H) 11.5 - 15.5 % 02/21/2025 1:48 PM [facility] PLATELET COUNT 185 140 - 440 thou/cu mm 02/21/2025 1:48 PM [facility] MPV 10.0 6.5 - 11.0 fL 02/21/2025 1:48 PM [facility] % NEUT 44.6 % 02/21/2025 1:48 PM [facility] % LYMPH 45.0 % 02/21/2025 1:48 PM [facility] % MONO 9.6 % 02/21/2025 1:48 PM [facility] % EOS 0.3 % 02/21/2025 1:48 PM [facility] % BASO 0.5 % 02/21/2025 1:48 PM [facility] ABSOLUTE NEUTROPHILS 4.5 1.7 - 7.0 thou/cu mm 02/21/2025 1:48 PM [facility] ABSOLUTE LYMPHOCYTES 4.6(H) 0.9 - 2.9 thou/cu mm 02/21/2025 1:48 PM [facility] ABSOLUTE MONOCYTES 1.0(H) <0.9 thou/cu mm 02/21/2025 1:48 PM [facility] ABSOLUTE EOSINOPHILS 0.0 <0.5 thou/cu mm 02/21/2025 1:48 PM [facility] ABSOLUTE BASOPHILS 0.1 <0.3 thou/cu mm 02/21/2025 1:48 PM [facility] Blood BLOOD SPECIMEN / Unknown IV Start / Unknown 02/21/2025 1:39 PM CDT 02/21/2025 1:42 PM CDT Alise BLANCA HEMATOLOGY Final R esult Performing Organization Address City[facility]/ZIP Co de Phone Number [facility] [address] [place] [address] * D-DIMER,QUANTITATIVE (02/21/2025 1:39 PM CDT) [facility] D-DIMER,QUANTI TATIVE 0.48 <=0.49 FEU mcg/mL 02/21/2025 1:52 PM CDT [facility] Blood BLOOD SPECIMEN / Unknown IV Start / Unknown 02/21/2025 1:39 PM CDT 02/21/2025 1:43 PM CDT [facility] - 02/21/2025 1:52 PM CDT The cut off value for exclusion of Deep Vein Thrombosis and / or Pulmonary Embolism is 0.50 FEU mcg/mL For patients greater than 50 years of age the upper limit is age dependent and was calculated with the formula: (PATIENT AGE x 0.01) FEU mcg/mL = Upper limit of normal range Alise BLANCA HEMATOLOGY Final R [facility] Performing Organization Address [facility] Co de Phone Number [facility] [address] [place] [address] * (ABNORMAL) BASIC METABOLIC PANEL (02/21/2025 1:39 PM CDT) [facility] SODIUM 140 136 - 145 mmol/L 02/21/2025 2:03 PM T [facility] POTASSIUM 3.0(L) 3.5 - 5.1 mmol/L 02/21/2025 2:03 PM T [facility] CHLORIDE 100 98 - 107 mmol/L 02/21/2025 2:03 PM T [facility] CO2,TOTAL 24 22 - 29 mmol/L 02/21/2025 2:03 PM [facility] ANION GAP 16 5 - 18 02/21/2025 2:03 PM [facility] GLUCOSE 94 70 - 99 mg/dL 02/21/2025 2:03 PM [facility] CALCIUM 8.5(L) 8.8 - 10.4 mg/dL 02/21/2025 2:03 PM CDT [facility] Comment: Reference ranges for this test were updated on 06/18/2024 to reflect our healthy population more accurately. Reference range changes are not retroactively applied to results, but previous results using the same methodology can be interpreted in the context of the new reference range. BUN 13 6 - 20 mg/dL 02/21/2025 2:03 PM CDT [facility] CREATININE 0.86 0.50 - 0.90 mg/dL 02/21/2025 2:03 PM T [facility] BUN/CREAT RATIO 15 10 - 20 2:03 PM T [facility] eGFR 87(L) >90 mL/min/1. 73m2 02/21/2025 2:03 PM CDT [facility] Comment:As of 2021, eG FR is calculated by the CKD-EPI creatinine equation without race adjustment. eGFR can be influenced by muscle mass, exercise, and diet. The reported eGFR is an estimation only and is only applicable if the renal function is stable. Blood BLOOD SPECIMEN / Unknown IV Start / Unknown 02/21/2025 1:39 PM CDT 02/21/2025 1:43 PM CDT us Alise Bangura PA CHEMISTRY Final R esult [facility] [address] [place] [address] * XR CHEST 2 VIEWS PA AND LATERAL (02/21/2025 12:49 PM CDT) Only the most recent of2 resultswithin the time period is included. Anatomical Region Laterality Modality CHEST, THORAX, Lung, HEART Digit al Radiography 02/21/2025 1:18 PM CDT Impressions 02/21/2025 1:18 PM CDT Lungs clear. No acute findings. Dictated by Amy Cutler MD @ 02/21/2025 1:18:26 PM (Electronically Signed) Narrative 02/21/2025 1:18 PM CDT For Patients: As a result of the Cures Act, medical imaging exams and procedure reports are released immediately into your electronic medical record. You may view this report before your referring provider. If you have questions, please contact your health care provider. INDICATION: Evaluate lung infiltrate COMPARISON: 02/11/2025 TECHNIQUE: PA and lateral 2 view chest. FINDINGS: Lung volumes are good. No focal or diffuse opacities. No pulmonary edema. No pleural effusion. No pneumothorax. No pneumomediastinum. Normal cardiomediastinal silhouette. Bones: Unchanged focal disc degeneration and vertebral body deformity at T11-12. No acute osseous findings. Procedure Note Amy Cutler MD - 02/21/2025 For Patients: As a result of the Cures Act, medical imagingexams and procedure reports are released immediately into your electronicmedical record. You may view this report before your referring provider.If you have questions, please contact your health care provider. INDICATION: Evaluate lung infiltrate COMPARISON: 02/11/2025 TECHNIQUE: PA and lateral 2 view chest. FINDINGS: Lung volumes are good. No focal or diffuse opacities. No pulmonary edema.No pleural effusion. No pneumothorax. No pneumomediastinum. Normal cardiomediastinal silhouette. Bones: Unchanged focal disc degeneration and vertebral body deformity [id number]. No acute osseous findings. IMPRESSION: Lungs clear. No acute findings. Dictated by Amy Cutler MD @ 02/21/2025 1:18:26 PM (Electronically Signed) Alise BLANCA GENERAL IMAGING Final R esult * LC HIV-1/O/2, 4TH GENERATION (03/27/2023 5:59 AM CDT) HIV Scr 4th Gen Non Reactive Non Reactive 03/29/2023 10:06 PM CDT [facility] Comment: HIV Negative HIV-1/HIV-2 antibodies and HIV-1 p24 antigen were NOT detected. There is no laboratory evidence of HIV infection. Blood BLOOD SPECIMEN / Unknown Butterfly / Unknown 03/27/2023 5:59 AM CDT 03/27/2023 6:06 AM CDT Narrative [facility] ([facility]) - 03/29/2023 10:06 PM CDT Performed at: [address] [place] [id number] Aerial Gunner: Milo Shanks MD, Phone: [phone] Gnina Rizo MD LABORATORY Final Result Performing Organization Address [facility] Co de Phone Number [facility] ([facility]) [address] [place] [address], * LC HCV ANTIBODY RFX TO QUANT PCR (03/26/2023 10:16 AM CDT) Pathologist [facility] HCV Ab Non Reactive Non Reactive 03/29/2023 10:06 PM CDT [facility] ([facility]) Blood BLOOD SPECIMEN / Unknown Butterfly / Unknown 03/26/2023 10:16 AM CDT 03/26/2023 10:33 AM CDT Narrative [facility] ([facility]) - 03/29/2023 10:06 PM CDT Performed at: [address] [place] [id number] Aerial Gunner: Milo Shanks MD, Phone: [phone] Ginna Rizo MD LABORATORY Final Result Performing Organization Address [facility] Co de Phone Number [facility] ([facility]) [address] [place] [address], * HPV HIGH RISK (06/03/2022 12:40 PM CDT) TYPE 16 Negative Negative 06/07/2022 3:19 PM CDT [facility] TYPE 18 Negative Negative 06/07/2022 3:19 PM CDT [facility] OTHER HIGH RISK TYPES Negative Negative 06/07/2022 3:19 PM CDT [facility] Other (Cervical) 06/03/2022 12:40 PM CDT 06/07/2022 7:17 AM CDT Narrative [facility] - 06/07/2022 3:19 PM CDT HPV types 16, 18, 31, 33, 35, 39, 45, 51, 52, 56, 58, 59, 66 and 68 DNA were undetectable or below the pre-set threshold. Methodology: Santos Alison 4800 HPV Test us Katerina Trujillo MD MICROBIOLOGY Final Resu lt [facility] [address] [place] [address], from Last 3 Months or Most Recently Relevant to Health Maintenance Insurance [facility] CHOICE CARE Advance Directives * Full Code (Latest Code [...] Preferences, Provider to review later Care Teams Field Appraiser Relationship Specialty Start Date End Date Katerina Trujillo MD [address] [place] [id number] PCP - General Obstetrics and Gynecology 03/06/20
--- OUTSIDE RECORDS SUMMARY | 2025-03-14 20:37 | XMS_ITS | Clinical Summary ---
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 15 tablet 0 08/14/2012 Active ibuprofen (ADVIL,MOTRIN) 200 MG tablet Take 3 tablets by mouth every 8 hours as needed for pain. 30 tablet 0 08/14/2012 Active methocarbamol (ROBAXIN) 500 MG tablet Take 1 tablet by mouth 4 times daily as needed. 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 Gender Identity Not on file Sexual Orientation Not on file Last Filed Vital Signs Vital Sign Reading Time Taken Comments Blood Pressure 122/68 02/11/2024 3:12 PM CDT Pulse 80 02/11/2024 1:52 PM CDT Temperature 37.1 C (98.7 F) 02/11/2024 3:12 PM CDT Respiratory Rate 18 02/11/2024 1:52 PM CDT Oxygen Saturation 100% 02/11/2024 1:52 PM CDT Inhaled Oxygen Concentration - - Weight 54.4 kg (120 lb) 02/11/2024 1:52 PM CDT Height - - Body Mass Index - - Plan of Treatment Health Maintenance Due Date Last Done Comments ADVANCE CARE PLANNING 1982 ANNUAL REVIEW OF HM ORDERS 1982 MAMMO SCREENING 1982 HEPATITIS B VACCINE (1 of 3 - 19+ 3-dose series) 2001 PNEUMOCOCCAL VACCINE: PEDIATRICS (0 to 5 YEARS) AND AT-RISK PATIENTS (6 to 49 YEARS) (2 of 2 - PCV) 11/08/2019 11/07/2018 YEARLY PREVENTIVE VISIT 11/08/2019 11/07/2018 DIABETES SCREENING 12/16/2021 12/16/2018 LIPID 2022 COVID-19 VACCINE ( season) 2024 PHQ-2 (once per calendar year) 2024 INFLUENZA VACCINE (#1) 2025 9, 10/14/2016, 07/19/2012, Additional history exists PAP 06/03/2025 06/03/2022 ZOSTER VACCINE (1 of 2) 2032 DTAP/TDAP/TD VACCINE (4 - Td or Tdap) 02/10/2034 02/11/2024, 10/14/2016, 02/07/2011 HEPATITIS C SCREENING Completed 03/26/2023, 019 HIV SCREENING Completed 03/27/2023, 11/07/2018 HPV VACCINE (No Doses Required) Completed MENINGITIS VACCINE Aged Out No longer eligible based on patient's age to complete this topic Procedures Procedure Name Priority Date/Time Associated Diagnosis Comments COMPREHENSIVE METABOLIC PANEL STAT 12/16/2018 4:39 PM CDT from Last 3 Months or Most Recently Relevant to Health Maintenance Results * Comprehensive metabolic panel (12/16/2018 4:39 PM CDT) Sodium 140 133 - 144 mmol/L 12/16/2018 5:14 PM [facility] Potassium 4.0 3.4 - 5.3 mmol/L 12/16/2018 5:14 PM [facility] Chloride 104 94 - 109 mmol/L 12/16/2018 5:14 PM [facility] Carbon Dioxide 30 20 - 32 mmol/L 12/16/2018 5:21 PM [facility] Anion Gap 6 3 - 14 mmol/L 12/16/2018 5:21 PM [facility] Glucose 96 70 - 99 mg/dL 12/16/2018 5:21 PM [facility] Urea Nitrogen 16 7 - 30 mg/dL 12/16/2018 5:21 PM [facility] Creatinine 0.93 0.52 - 1.04 mg/dL 12/16/2018 5:21 PM [facility] GFR Estimate 79 >60 mL/min/{1. 73_m2} 12/16/2018 5:21 PM [facility] Comment: Non GFR Calc Starting 07/31/2018, serum creatinine based estimated GFR (eGFR) will be calculated using the Chronic Kidney Disease Epidemiology Collaboration (CKD-EPI) equation. GFR Estimate If Black >90 >60 mL/min/{1. 73_m2} 12/16/2018 5:21 PM [facility] Comment: GFR Calc Starting 07/31/2018, serum creatinine based estimated GFR (eGFR) will be calculated using the Chronic Kidney Disease Epidemiology Collaboration (CKD-EPI) equation. Calcium 8.8 8.5 - 10.1 mg/dL 12/16/2018 5:21 PM [facility] Bilirubin Total 0.4 0.2 - 1.3 mg/dL 12/16/2018 5:23 PM [facility] Albumin 3.9 3.4 - 5.0 g/dL 12/16/2018 5:23 PM [facility] Protein Total 7.2 6.8 - 8.8 g/dL 12/16/2018 5:23 PM [facility] Alkaline Phosphatase 65 40 - 150 U/L 12/16/2018 5:23 PM CDT [facility] ALT 20 0 - 50 U/L 12/16/2018 5:23 PM CDT [facility] AST 16 0 - 45 U/L 12/16/2018 5:23 PM CDT [facility] Blood specimen (specimen) 12/16/2018 4:39 PM CDT 12/16/2018 4:48 PM CDT us Morrellnola Reese MD LAB - BLOOD ORDERABLE S Final Result [facility] [address] [place] [address] from Last 3 Months or Most Recently Relevant to Health Maintenance Insurance [employer] [place] [facility] [place] Care Teams 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
--- OUTSIDE RECORDS SUMMARY | 2025-03-14 20:39 | XMS_ITS | CCD ---
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
[2025-03-14 20:55] VITALS: BP 131/86; PULSE 111; RESP 22; TEMP 36.7; O2SAT 98; BMI 21.3
--- NOTE | 2025-03-14 21:08 | CRLHL7_ITS ---
For Patients: As a result of the Century Cures Act, medical imaging exams and procedure reports are released immediately into your electronic medical record. You may view this report before your referring provider. If you have questions, please contact your health care provider. Indication: Trauma Technique: Noncontrast CT through the lumbar spine with multiplanar reformats Comparison: None Findings: Examination is motion degraded. Questionable fracture and traumatic malalignment versus artifact at the level of L2-3. This is essentially nondiagnostic for evaluation of the lumbar spine. Impression: Examination is motion degraded. Questionable fracture and traumatic malalignment versus artifact at the level of L2-3. This is essentially nondiagnostic for evaluation of the lumbar spine. Please note that all CT scans at this facility use dose modulation, iterative reconstruction, and/or weight-based dosing when appropriate to reduce radiation dose to as low as reasonably achievable. Dictated by Igor Nichols MD @ 03/14/2025 9:46:35 PM (Electronically Signed)
--- NOTE | 2025-03-14 21:08 | CRLHL7_ITS ---
For Patients: As a result of the Century Cures Act, medical imaging exams and procedure reports are released immediately into your electronic medical record. You may view this report before your referring provider. If you have questions, please contact your health care provider. Indication: Trauma Technique: Postcontrast CT of the chest, abdomen, and pelvis with multiplanar reformats following 58 mL Isovue 370 IV. Comparison: None Findings: Portions of the chest are excluded from field of view. Motion degradation. Chest: Lungs: No consolidation. No effusion. No pneumothorax. Mediastinum: No acute abnormality appreciated. Lymph nodes: No gross lymphadenopathy. Soft tissues: No acute abnormality appreciated. Bones: No acute abnormality appreciated. Abdomen and Pelvis: Hepatobiliary: No significant parenchymal abnormality is appreciated. Spleen: Unremarkable. Pancreas: No acute abnormality appreciated. Adrenal glands: No acute abnormality appreciated. Kidneys: No significant parenchymal abnormality appreciated. No visualized calculi. No hydronephrosis. Bowel: No obstruction. No focal perienteric or pericolonic stranding is appreciated. The appendix is visualized and appears unremarkable. Vascular: No acute abnormality appreciated. Lymph nodes: No gross lymphadenopathy. Peritoneum: No free air. No free fluid. : No acute abnormality appreciated. Soft tissues: No acute abnormality appreciated. Bones: No acute fracture. No lytic or blastic lesion. Impression: Examination is degraded due to motion as well as portions of the chest being excluded from field of view. A repeat noncontrast examination was performed and is dictated on a separate accession number. Allowing for these limitations, no definite acute abnormality is appreciated. Please see separate dictation on the repeat examination for further evaluation. Please note that all CT scans at this facility use dose modulation, iterative reconstruction, and/or weight-based dosing when appropriate to reduce radiation dose to as low as reasonably achievable. Dictated by Igor Nichols MD @ 03/14/2025 11:30:00 PM (Electronically Signed)
--- NOTE | 2025-03-14 21:08 | CRLHL7_ITS ---
For Patients: As a result of the 21st Century Cures Act, medical imaging exams and procedure reports are released immediately into your electronic medical record. You may view this report before your referring provider. If you have questions, please contact your health care provider. Indication: Trauma Technique: Noncontrast CT through the thoracic spine with multiplanar reformats Comparison: None Findings: Examination is significantly motion degraded. Additionally, the T1-T3 levels are excluded from field of view. Areas of mild malalignment and cortical irregularity are noted but it is impossible to differentiate trauma from motion artifact. This is essentially nondiagnostic for evaluation of the thoracic spine. Impression: Examination is significantly motion degraded. Additionally, the T1-T3 levels are excluded from field of view. Areas of mild malalignment and cortical irregularity are noted but it is impossible to differentiate trauma from motion artifact. This is essentially nondiagnostic for evaluation of the thoracic spine. Please note that all CT scans at this facility use dose modulation, iterative reconstruction, and/or weight-based dosing when appropriate to reduce radiation dose to as low as reasonably achievable. Dictated by Igor Nichols MD @ 03/14/2025 9:45:13 PM (Electronically Signed)
[2025-03-14] MEDS: ONDANSETRON 2 MG/ML inj 4 MG IVP (21:12)
[2025-03-14 21:19] LABS: Hematocrit 34.2 % (33.0-51.0); Hemoglobin* 11.7 gm/dL (12.0-16.0); Immature Granulocytes Abs Auto 0.01 K/uL (0.00-0.30); Immature Granulocytes Pct Auto 0.1 %; Lymphocytes Absolute Auto 3.16 K/uL (0.90-2.90); Mean Corpuscular HGB Conc 34 gm/dL (32-36); Mean Corpuscular Hemoglobin 36 pg (26-34); Mean Corpuscular Volume 106 fL (80-100); RDW Coefficient of Variation % 14.4 % (11.5-15.5); Red Blood Count 3.22 m/uL (4.00-5.20); White Blood Count* 8.28 K/uL (4.50-11.00)
[2025-03-14 21:21] LABS: Slide Review Reflex No
--- OUTSIDE RECORDS SUMMARY | 2025-03-14 21:39 | XMS_ITS | CCD ---
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
--- OUTSIDE RECORDS SUMMARY | 2025-03-14 21:39 | XMS_ITS | CCD ---
Author Name Interface, [id number] lity Address [address] [place] [id number] [facility] On[facility] Address [facility] [address] [address] Care Team Providers Care Food Service Name Role Phone Mallorie Beebe MD, Amberly Unavailable Unavailable Reason for Visit Social History
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
[2025-03-14 21:44] LABS: INR 0.86 (0.91-1.10); Prothrombin Time 12.5 Seconds
[2025-03-14 21:49] LABS: Albumin* 4.2 g/dL (3.3-5.0); Chloride* 103 mmol/L (96-114); Sodium* 137 mmol/L (135-149)
[2025-03-14 21:50] LABS: Potassium* 3.9 mmol/L (3.6-5.1)
[2025-03-14 21:52] LABS: Alanine Aminotransferase* 90 U/L (4-35); Alkaline Phosphatase* 73 U/L (40-150); Anion Gap 9 mEq/L (7-15); Aspartate Amino Transferase* 92 U/L (12-35); Bilirubin Total* 0.7 mg/dL (0.1-1.5); Blood Urea Nitrogen* 13 mg/dL (5-24); Calcium* 9.5 mg/dL (8.4-10.6); Carbon Dioxide* 25 mmol/L (20-32); Creatinine* 1.1 mg/dL (0.5-1.5); Est. Creatinine Clearance* 55.11; Estimated Glomerular Filt Rate 64 ml/min; Glucose* 94 mg/dL (60-115); Total Protein* 6.7 g/dL (6.0-8.3)
[2025-03-14 21:53] LABS: Ethanol* 0.27 % (0.01-0.03)
[2025-03-14 22:42] VITALS: BP 106/60; PULSE 75; RESP 16; TEMP 36.4; O2SAT 98
--- NOTE | 2025-03-14 23:05 | CRLHL7_ITS ---
For Patients: As a result of the Century Cures Act, medical imaging exams and procedure reports are released immediately into your electronic medical record. You may view this report before your referring provider. If you have questions, please contact your health care provider. Indication: Trauma Technique: Noncontrast CT of the chest, abdomen, and pelvis with multiplanar reformats. Comparison: Same day motion degraded CT Findings: Chest: Lungs: No consolidation. No effusion. No pneumothorax. Mild atelectasis and/or scarring. A few pulmonary nodules are noted measuring up to 4 millimeters. Mediastinum: No acute abnormality appreciated. No calcified coronary arterial atherosclerosis appreciated. Lymph nodes: No gross lymphadenopathy. Soft tissues: No acute abnormality appreciated. Bones: Mild degenerative changes of the spine. Abdomen and Pelvis: Hepatobiliary: No significant parenchymal abnormality is appreciated. Spleen: Unremarkable. Pancreas: No acute abnormality appreciated. Adrenal glands: No acute abnormality appreciated. Kidneys: Contrast excretion into the collecting system precludes reliable assessment of nonobstructing calculi. No hydronephrosis. Bowel: No obstruction. No focal perienteric or pericolonic stranding is appreciated. Vascular: Poorly evaluated on this noncontrast examination. Lymph nodes: No gross lymphadenopathy. Peritoneum: No free air. No free fluid. : Contrast present within the bladder. Soft tissues: No acute abnormality appreciated. Bones: No acute fracture. No lytic or blastic lesion. Impression: 1. No acute traumatic abnormality appreciated. 2. Scattered pulmonary nodules measure up to 4 millimeters. Follow-up CT of the chest in 12 months recommended. Please note that all CT scans at this facility use dose modulation, iterative reconstruction, and/or weight-based dosing when appropriate to reduce radiation dose to as low as reasonably achievable. Dictated by Igor Nichols MD @ 03/14/2025 11:34:34 PM (Electronically Signed)
[2025-03-14 23:59] VITALS: O2SAT 98
[2025-03-15 00:01] VITALS: BP 112/74; PULSE 81; RESP 16; TEMP 36.4; O2SAT 98
[2025-03-15 00:05] VITALS: BP 112/74; PULSE 81; RESP 16; TEMP 36.4
== END 2025-03-15 00:05 | disposition home or self-care (01) ==
PROVIDERS: Emergency Provider Emergency Medicine
DX: S29.9XXA Unspecified injury of thorax, initial encounter (principal); S39.91XA Unspecified injury of abdomen, initial encounter; R10.30 Lower abdominal pain, unspecified; V03.09XA Pedestrian with other conveyance injured in collision with car, pick-up truck or van in nontraffic accident, initial encounter
CPT/HCPCS: 36415; 71250; 71260; 72128; 72131; 74176; 74177; 76705; 80053; 82077; 83690; 85025; 85610; 86850; 86900; 86901; 99285; 99291; J1171; J2060; J2405; Q9967